=== PATIENT | male | born 1945 | race Caucasian/White ===

== ENCOUNTER 2017-03-02 08:36 | Observation (INO) | payer MEDICARE ==
[2017-03-02] MEDS ORDERED: Aspirin Low Dose CHEW TAB* 81 MG PO ONE (08:45)
--- NOTE | 2017-03-02 09:28 | RAD ---
INDICATION: Palpitations COMPARISON: September 07, 2012 TECHNIQUE: An AP portable view obtained at 0856 hours is submitted. FINDINGS: Bones/Soft Tissues: There are no acute bony findings. There is left-sided cardiac pacemaker/defibrillator Cardiomediastinal: The cardiomediastinal silhouette is mildly prominent. Lungs: There are no infiltrates. Pleura: There are no pleural effusions. Other: None IMPRESSION: MILDLY PROMINENT CARDIAC SILHOUETTE. NO VASCULAR CONGESTION OR FOCAL INFILTRATES
[2017-03-02 09:42] LABS: Hematocrit 41 % (42-52); Hemoglobin 14.3 g/dl (14.0-18.0); Mean Corpuscular HGB Conc 35 g/dl (31-36); Mean Corpuscular Hemoglobin 31 pg (27-31); Mean Corpuscular Volume 88 fL (80-94); Mean Platelet Volume 9 um3 (7.4-10.4); Red Cell Distribution Width 13 % (10.5-15); White Blood Count 7.3 10^3/ul (3.5-10.8)
[2017-03-02 09:57] LABS: Albumin 3.8 g/dL (3.2-5.2); BUN/Creatinine Ratio 14.2 (8-20); Calcium 9.2 mg/dL (8.6-10.3); EGFR African American 77.2 (>60); Globulin 3.5 g/dL (2-4); Potassium 3.4 mmol/L (3.5-5.0); Total Bilirubin 0.8 mg/dL (0.2-1.0); Total Protein 7.3 g/dL (6.4-8.9)
[2017-03-02 10:01] LABS: Troponin I 0.04 ng/mL (<0.04)
[2017-03-02 10:54] LABS: Urine Bacteria Absent (Absent); Urine Bilirubin Negative (Negative); Urine Glucose 3+(>=500 mg/dL) (Negative); Urine Nitrite Negative (Negative)
[2017-03-02] MEDS ORDERED: Ondansetron INJ* 2 MG/ML VIAL IV PRN (11:18)
[2017-03-02] MEDS ORDERED: Dextrose 50% Syringe 50 ML* 25 GM/50 ML SYRINGE IV PUSH PRN (11:18)
[2017-03-02] MEDS ORDERED: Acetaminophen TAB* 325 MG PO PRN (11:18)
[2017-03-02] MEDS ORDERED: Potassium Chlor TAB* 20 MEQ TAB.ER PO ONE (11:23)
[2017-03-02] MEDS ORDERED: hydrALAZINE IV* 20 MG/ML VIAL ONE (11:33)
[2017-03-02 11:39] LABS: Magnesium 1.7 mg/dL (1.9-2.7)
[2017-03-02] MEDS: hydrALAZINE IV* 20 MG/ML VIAL IV SLOW PU PRN ×2 (11:40→13:36)
[2017-03-02] MEDS ORDERED: HYDROcodone/ACETAMIN 5-325 MG* 1 TAB PO PRN (11:42)
[2017-03-02] MEDS ORDERED: [UNRECOGNIZED DRUG - OTHER] PO PRN (11:42)
[2017-03-02] MEDS ORDERED: Magnesium Sulfate 2 GM IV* 2 GM/50 ML BAG IVPB ONE (11:46)
[2017-03-02] MEDS: Insulin LISPRO* 1 UNITS UNIT SUBCUT SCH ×2 (12:11→18:00)
[2017-03-02] MEDS: amLODIPine TAB* 5 MG PO SCH (13:36)
[2017-03-02 13:48] LABS: TSH (Thyroid Stimulating Horm) 1.31 mcIU/mL (0.34-5.60)
[2017-03-02] MEDS ORDERED: hydrALAZINE IV* 20 MG/ML VIAL IV SLOW PU ONE (14:00)
[2017-03-02] MEDS ORDERED: amLODIPine TAB* 5 MG PO ONE (14:00)
[2017-03-02] MEDS ORDERED: Perflutren Lipid Microsphere* 3 ML VIAL ONE (14:12)
[2017-03-02] MEDS: Morphine TAB Extended Release (*) 15 MG TAB.ER PO SCH ×2 (14:19→20:34)
--- NOTE | 2017-03-02 14:49 | HP ---
CC: Dr. Maciel; Dr. Cosby; Dr. Hansen * HISTORY AND PHYSICAL: DATE OF ADMISSION: 03/02/17 PRIMARY CARE PROVIDER: Dr. Cosby. ATTENDING PHYSICIAN WHILE IN THE HOSPITAL: Dr. Debra Laboy * report being dictated by Richy Sal NP). CHIEF COMPLAINT: 1. Dyspnea on exertion. 2. Not feeling well. 3. "My defibrillator went off." HISTORY OF PRESENTING ILLNESS: Mr. Aidan Shahid is a 71-year-old male patient; he carries a history of AFib, history of CHF, diabetes, hypertension, BPH, SARITA, spinal stenosis. He comes into the ER today stating that last evening just was not feeling good, he was feeling clammy, feeling really short of breath, sick with any exertion. He says even shifting in his bed he got short of breath. He says he was able to go to bed, he put his CPAP on, he was feeling fine. He laid down, felt better, and went to sleep. However, he woke up this morning he was getting dressed when he was feeling short of breath again. He did not have any chest pressure, did not have any chest pain, did not feel any palpitations and all of a sudden his AICD went off and his was worried and called 911 immediately. He denies any recent change in medications. He says he has been taking his meds as prescribed, he has not missed any. Says he has not had any chest pain. Denied having any fevers or chills. There has been no vomiting or diarrhea. He just says he has not been really feeling all that well. He came into the ER and was evaluated. His troponin was mildly elevated. His electrolytes were off. His potassium was low. Because of the AICD firing, the hospitalist service was asked to evaluate for admission. PAST MEDICAL HISTORY: 1. Diabetes. 2. Hypertension. 3. AFib. 4. CAD. 5. CHF. 6. BPH. 7. SARITA. 8. Spinal stenosis. PAST SURGICAL HISTORY: 1. He has had an AICD placement. 2. He has had a cardiac catheterization. 3. He has had tonsillectomy. 4. Rectal surgery. HOME MEDICATIONS: Include, 1. Coreg 25 mg twice a day. 2. Gabapentin 300 mg p.o. b.i.d. 3. Warfarin he is on 8 mg daily. 4. Flomax 0.4 mg daily. 5. Humalog 15 units per sliding scale. 6. Levemir he is on 20 units daily. 7. Lisinopril he is on 20 mg daily. 8. Hydrocodone/acetaminophen 10/325 one tablet every 4 hours as needed. 9. MiraLAX mixing 1-1/2 to 2 capsules in 8 ounces of water daily. 10. He is on morphine ER 15 mg t.i.d. 11. Triamcinolone cream applied to area 3 times a day to rash on leg. 12. Vitamin D3 one tablet every day. 13. Synthroid 50 mcg daily. 14. Furosemide 20 mg daily. 15. Metformin 1500 mg twice a day. 16. Nortriptyline 100 mg at bedtime. 17. Lipitor 1 tablet by mouth daily. 18. Melatonin 1 capsule at bedtime as needed for sleep. ALLERGIES TO MEDICATIONS: Include no known drug allergies. FAMILY HISTORY: His mother had a history of breast cancer. His father had a history of lung cancer. SOCIAL HISTORY: He is a former smoker, he quit. He does not drink alcohol, if he does it is very rarely. He is , with children. His surrogate decision maker is his . REVIEW OF SYSTEMS: There is no documented fever. He denied having any significant weight change. There was no double vision. He denied having any ear discharge. There was no rhinorrhea. No sore throat. No thyroid enlargement. Denied chest pain. There was dyspnea on exertion. No orthopnea. No nocturnal dyspnea. There was no abdominal pain. No nausea. No vomiting. No dysuria. No frequency. No loss of consciousness. No pruritus. Review of 14 systems completed, all others were negative. PHYSICAL EXAMINATION GENERAL: At this time, Mr. Shahid is a 71-year-old male patient; he is morbidly obese. He is sitting in the ER stretcher. He does not appear to be in any acute distress. VITAL SIGNS: Blood pressure 197/102, pulse of 91, respirations 16, O2 sat 95%, temperature 97.4. HEENT: Head is atraumatic, normocephalic. Eyes: EOMs are intact. Sclerae were anicteric and not pale. Throat: Oral mucosa appears to be moist. No oropharyngeal erythema. NECK: Supple. LUNGS: Clear to auscultation. No wheezes, rales, or rhonchi. HEART: Sounds S1, S2. Regular rate and rhythm. No murmurs, rubs, or gallops. ABDOMEN: Soft, flat, nontender. Bowel sounds were present. EXTREMITIES: Pulses were 2+ throughout. Able to move all 4 extremities. He does have +2 pitting edema in the pedal area and 5/5 strength. NEUROLOGICAL: He is awake, he is alert, he is oriented x3. His tongue is midline. Materials Coordinator were equal. No gross focal deficits. SKIN: Intact. LABORATORY DATA/DIAGNOSTIC STUDIES: Today revealed a WBC of 7.3, RBC of 4.70, hemoglobin of 14.3, hematocrit of 41, and a platelet count of 231. INR 1.80, PTT was 35.2. D-dimer less than 200. Sodium 133, potassium 3.4, chloride of 100, bicarb 24, BUN 17, creatinine 1.20, glucose of 283, lactate 3.3, calcium 9.2, mag pending. Total bili 0.8, AST 17, ALT 18, alk phos 77. Troponin 0.04. Albumin of 3.8. TSH pending. Urine showed a low specific gravity, 2+ protein , 1+ blood, 3+ urine glucose. He did have an EKG obtained today, which unfortunately I do not have a previous for comparison here, but the EKG today showed a sinus tachycardia. He did have some ST depression in V4, 5, and 6 and leads I, II, and III appears to be actually diffuse depression. He does have an intraventricular conduction delay. Again, no previous EKG for comparison. He also had a chest x-ray obtained today, which impression read mildly prominent cardiac silhouette, no vascular congestion, no focal infiltrates. Old medical records were reviewed. ASSESSMENT AND PLAN: Mr. Shahid is a 71-year-old male patient coming into the ER today with complaints of just not feeling well over the last 24 to 36 hours and then this morning his AICD fired. He was brought into the hospital, evaluated, and noted that he had an elevated troponin. His lactate was up and in addition to this his calcium was 3.4. Hospitalist service was asked to evaluate for admission. He will be admitted under observation status for: 1. AICD firing. At this point, we know his potassium is low so we are going to replace this. We will get his mag, get his TSH. We will cycle his troponins. We will get an echo, he has not had one recently. I am going to try to get the records from Dr. Maciel's office if possible. Unfortunately, my is not working and I cannot login to this. I did touch base with Dr. Hansen who will evaluate the patient. We will stabilize his electrolytes, get the interrogation done and we will continue his medications as prescribed. 2. Hypertension. It is not well controlled. At this point, his blood pressure is in the 200s here. I am going to give him some hydralazine. We will continue his medications. He said he took them this morning. I will consider adding on some Norvasc at bedtime to see this helps keep the blood pressure down. I would like to get it to the 140s to 150 range. 3. Diabetes. We will place him on a lispro sliding scale. He is also on Levemir but we will convert this to Lantus. 4. Atrial fibrillation. Again, he appears to be in a sinus tachycardia at this point. We will again continue his rate controlling agents and Coumadin. His INR is subtherapeutic at 1,8. We will continue 8 mg and repeat in the morning. 5. Coronary artery disease. He is on a beta-cesar and statin. We will continue these medications. 6. Congestive heart failure. He does not appear to be in failure. We will continue his Lasix as prescribed. 7. Benign prostatic hyperplasia. Continue his Flomax. 8. Obstructive sleep apnea. I did order the CPAP. 9. Spinal stenosis. We will continue his pain medications as prescribed. 10. DVT prophylaxis. He is on warfarin. INR is 1.8. We will continue with this and I will order SCDs. 11. Code status. He wishes to be a do not resuscitate. We will try to track down his MOLST; if he does not have one, we will fill one out. 12. Fluids, electrolytes, and nutrition. He can have a consistent carbohydrate diet. TIME SPENT: On the admission was approximately 60 minutes, greater than half the time spent [id number] with the patient obtaining my history and physical; other half time spent going over the plan of care with the patient and implementing the plan of care. I discussed the plan of care with my attending, Dr. Laboy, who is in agreement. RICHY SAL NP [id number]/[facility] #: [id number] CARIDAD
[2017-03-02] MEDS ORDERED: Labetalol IV* 5 MG/ML 20 ML VIAL IV PUSH ONE ×2 (14:54→18:15)
--- NOTE | 2017-03-02 16:22 | ECHO ---
Patient: MONY ULLOA [facility] Rec#: [id number] : 1945 Date: 03/02/2017 Age: 71y Height: 187.96 cm / 74.0 in Weight: 146.06 kg / 321.9 lbs Sex: M BSA: 2.66 Room#: 443 Admit Date#: 03/02/2017 Type: Inpatient Referring: Richy Sal NP Reading: Ramonita Hansen MD Continuity Tester: Lidia Madsen LIZZ CC: Jorge Cosby MD Transthoracic Echocardiogram Indication: CAD//s/p defib firing BP: 197/102 HR: 73 Rhythm: Paced Findings History: CAD,[place],s/p AICD insert,DM,smoker,asthma,HTN. Technical Comments: The study is technically limited due to patient body habitus. Completed at 1459. The study is technically limited due to the patient's smoking history. Left Ventricle: The left ventricular chamber size is mildly dilated. Moderate concentric left ventricular hypertrophy is observed. There is normal left ventricular systolic function. The estimated ejection fraction is 55-60%. Abnormal left ventricular diastolic function is observed. Left Atrium: The left atrial chamber size is normal. Right Ventricle: The right ventricular cavity size is normal. The right ventricular global systolic function is normal. A pacemaker wire is visualized in the right ventricle. Right Atrium: The right atrial cavity size is normal. A pacemaker wire is visualized in the right atrium. Aortic Valve: The aortic valve is trileaflet. The aortic valve leaflets are mildly thickened. There is no evidence of aortic regurgitation. There is no evidence of aortic stenosis. The highest aortic valve velocity was obtained with the standard probe from the A5C view. Mitral Valve: The mitral valve leaflets are mildly thickened. There is a trace of mitral regurgitation. There is no evidence of mitral stenosis. Tricuspid Valve: The tricuspid valve leaflets are normal. There is trace tricuspid regurgitation. Unable to estimate the right ventricular systolic pressure. Pulmonic Valve: The pulmonic valve structure is not well visualized. Pericardium: The pericardium appears normal. Aorta: The ascending aorta is not well visualized. There is no dilatation of the aortic arch. There is no dilation of the aortic root. Pulmonary Artery: The main pulmonary artery appears normal. Venous: The venous system is not well visualized. Contrast: Definity was used to optimize study. A total of 4ml was given. Intravenous contrast was used to enhance endocardial border definition. Conclusions Moderate concentric left ventricular hypertrophy is observed. There is normal left ventricular systolic function. The estimated ejection fraction is 55-60%. Abnormal left ventricular diastolic function is observed. The right ventricular global systolic function is normal. P pacemaker wire noted in RV. The aortic valve leaflets are sclerosed, no significant stenosis. There is a trace of mitral regurgitation. There is trace tricuspid regurgitation. Compared with prior echo of 03/21/15, EF is stable, valve function not significantly changed. Unable to compare PA pressure, previously elevated. Measurements Name Value Normal Range RVIDd (AP) 2D 3 cm (0.9 - 2.6) RVDdMajor (2D) 3 cm (2.2 - 4.4) RAd ISD 4CH 4.4 cm (3.4 - 4.9) RA (A4C)W 3.6 cm (2.9 - 4.6) IVSd (2D) 1.2 cm (0.6 - 1) LVPWd (2D) 1.6 cm (0.6 - 1) LVIDd (2D) 5.7 cm (3.6 - 5.4) LVIDs (2D) 3.8 cm - LV FS (2D) 33 % (25 - 45) Aortic Annulus 2.3 cm (1.4 - 2.6) Ao root diameter (2D) 3.8 cm (2.1 - 3.5) Aortic arch 3.3 cm (1.8 - 3.4) Descending Ao 0.6 cm - LA dimension (AP) 2D 3.8 cm (2.3 - 3.8) LAd ISD 4CH 4.9 cm (2.9 - 5.3) LA ISD 4CH W 3.2 cm (2.5 - 4.5) Name Value Normal Range LA ESV SP 4CH (A/L) 51 ml - LA ESV SP 2CH (A/L) 46 ml - LA ESV BP (A/L) 50 ml - LA ESV BP (A/L) index 18.67 ml/m2 - LA ESV SP 4CH (MOD) 49 ml - LA ESV SP 2CH (MOD) 45 ml - Name Value Normal Range MV E-wave Vmax 0.7 m/sec - MV deceleration time 235 msec - MV A-wave Vmax 0.8 m/sec - MV E:A ratio 0.89 ratio - LV septal e' Vmax 0.07 m/sec - LV lateral e' Vmax 0.05 m/sec - LV E:e' septal ratio 10 ratio - LV E:e' lateral ratio 14 ratio - Name Value Normal Range AV Vmax 2.7 m/sec - AV VTI 54.8 cm - AV peak gradient 29.61 mmHg - AV mean gradient 16.78 mmHg - LVOT diameter 2.1 cm - LVOT Vmax 0.9 m/sec - LVOT VTI 17.9 cm - LVOT peak gradient 3 mmHg - LVOT mean gradient 1.51 mmHg - TARAH (continuity Vmax) 1.2 cm2 - TARAH (continuity VTI) 1.1 cm2 - Name Value Normal Range PV Vmax 1.2 m/sec - PV peak gradient 5.64 mmHg -
[2017-03-02] MEDS ORDERED: CMCS Melatonin (NF) 3 MG TAB PO PRN (17:08)
[2017-03-02] MEDS ORDERED: Warfarin TAB(*) 4 MG PO SCH (18:00)
[2017-03-02] MEDS: Potassium Chlor TAB* 20 MEQ TAB.ER PO SCH (20:35)
[2017-03-02] MEDS: Tamsulosin CAP* 0.4 MG PO SCH (20:35)
[2017-03-02] MEDS: Gabapentin CAP(*) 300 MG PO SCH (20:35)
[2017-03-02] MEDS ORDERED: Nortriptyline CAP* 25 MG PO SCH (21:00)
[2017-03-02] MEDS ORDERED: Carvedilol TAB* 25 MG PO SCH (21:00)
[2017-03-02] MEDS ORDERED: Insulin GLARGINE(*) 1 UNITS UNIT SUBCUT SCH (21:00)
[2017-03-02] MEDS ORDERED: Carvedilol TAB* 25 MG PO ONE (21:49)
--- NOTE | 2017-03-02 22:06 | PN ---
Hospitalist Progress Note Discussed case with cannon fire direction specialist cardiology. Plan is to increase coreg to 50mg bid and start amio 400mg bid times 5 days than 200mg daily. Will need close f/u with INR due to amio.
[2017-03-03] MEDS ORDERED: Melatonin (NF) 3 MG TAB PO ONE (01:00)
[2017-03-03] MEDS: Amiodarone TAB* 400 MG PO SCH ×2 (01:01→09:25)
[2017-03-03 05:23] LABS: Hematocrit 37 % (42-52); Hemoglobin 12.8 g/dl (14.0-18.0); Mean Corpuscular HGB Conc 34 g/dl (31-36); Mean Corpuscular Hemoglobin 30 pg (27-31); Mean Corpuscular Volume 88 fL (80-94); Mean Platelet Volume 8 um3 (7.4-10.4); Red Blood Count 4.24 10^6/ul (4.0-5.4); Red Cell Distribution Width 13 % (10.5-15); White Blood Count 6.3 10^3/ul (3.5-10.8)
[2017-03-03 05:37] LABS: BUN/Creatinine Ratio 15.2 (8-20); Calcium 8.5 mg/dL (8.6-10.3); EGFR African American 73.7 (>60); EGFR Non-African American 57.3 (>60); Potassium 3.7 mmol/L (3.5-5.0)
[2017-03-03] MEDS ORDERED: Levothyroxine TAB* 50 MCG TAB PO SCH (06:00)
--- NOTE | 2017-03-03 07:04 | CARD ---
CC: Dr. Tian Maciel * DEFIBRILLATOR INTERROGATION REPORT: DATE OF INTERROGATION: 03/02/17 - ROOM #443 INDICATION: Defibrillator shock. DESCRIPTION OF INTERROGATION: The patient has a [employer] ICD model Current VR RF 1207-36, serial number [id number]. We had a remote interrogation done today and this current confirmed the patient has a single-chamber defibrillator programmed for a lower pacing rate of 40 beats a minute. The patient's tachy programming is to monitor only in VT1 and VT2. VT1 zone is programmed to detect and monitor at 150 beats to 175 beats a minute. VT2 programmed to detect entry dysrhythmias of 176 beats a minute or greater with ATP and defibrillator shock and the VF zone is 206 beats a minute or greater with shock. The patient has supraventricular tachycardia detected at 3:52 this morning and this persisted until 4:40 in the morning, at which time the device was programmed to time-out and therefore delivered a shock to the supraventricular tachycardia. The intracardiac electrograms are consistent with AFib with irregularly irregular rates between 150 and 170 beats a minute. CONCLUSION: Atrial fibrillation from 3:52 in the morning to 4:40 in the morning at which time the SVT discriminator timed out and therapy was delivered in the form of ATP 3 times, unsuccessful followed by a 36-joule shock which successfully cardioverted the patient to normal sinus rhythm. PLAN: Turn time-out feature of SVT/afib with discriminator to off. [id number]/[facility] #: [id number] CARIDAD
[2017-03-03 08:00] VITALS: BP 153/79
[2017-03-03] MEDS: Insulin LISPRO* 1 UNITS UNIT SUBCUT SCH ×2 (08:25→12:21)
[2017-03-03] MEDS ORDERED: Carvedilol TAB* 25 MG PO SCH (09:00)
[2017-03-03] MEDS ORDERED: Furosemide TAB* 20 MG PO SCH (09:00)
[2017-03-03] MEDS ORDERED: Lisinopril TAB* 10 MG PO SCH (09:00)
[2017-03-03] MEDS ORDERED: Atorvastatin* 40 MG TAB PO SCH (09:00)
[2017-03-03] MEDS: amLODIPine TAB* 5 MG PO SCH (09:26)
[2017-03-03] MEDS: Gabapentin CAP(*) 300 MG PO SCH (09:26)
[2017-03-03] MEDS: Morphine TAB Extended Release (*) 15 MG TAB.ER PO SCH (09:27)
[2017-03-03] MEDS: Potassium Chlor TAB* 20 MEQ TAB.ER PO SCH (09:27)
[2017-03-03] MEDS: Tamsulosin CAP* 0.4 MG PO SCH (09:28)
--- NOTE | 2017-03-03 10:16 | PN ---
Subjective Date of Service: 03/03/17 Interval History: Mr. Shahid states that he is feeling quite well today. He denies any further sensation of clamminess or SOB. He further denies chest pain, nausea, or abdominal pain. He has been up ambulating on the unit without difficulty. Objective Active Medications: Acetaminophen (Tylenol Tab*) 650 mg PO Q4H PRN Hydrocodone Bitart/Acetaminophen ([place] 5-325 Tab*) 2 tab PO Q4HR PRN Amiodarone HCl (Cordarone Tab*) 400 mg PO BID FABIOLA Amlodipine Besylate (Norvasc Tab*) 5 mg PO DAILY FABIOLA Atorvastatin Calcium (Lipitor*) 40 mg PO DAILY FABIOLA Carvedilol (Coreg Tab*) 50 mg PO BID FABIOLA Dextrose (D50w Syringe 50 Ml*) 12.5 gm IV PUSH .FOR FS < 60 - SS PRN Furosemide (Lasix Tab*) 20 mg PO DAILY [facility] Gabapentin (Neurontin Cap(*)) 300 mg PO BID FABIOLA Hydralazine HCl (Apresoline Iv*) 5 mg IV SLOW PU Q6H PRN Insulin Glargine (Lantus(*)) 20 units SUBCUT Q24H FABIOLA Insulin Human Lispro (Humalog*) 0 units SUBCUT AC FABIOLA Levothyroxine Sodium (Synthroid Tab*) 50 mcg PO 0600 FABIOLA Lisinopril (Prinivil Tab*) 20 mg PO DAILY [facility] Melatonin (Melatonin (Nf)) 3 mg PO BEDTIME PRN Morphine Sulfate (Ms Contin(*)) 15 mg PO TID FABIOLA Nortriptyline HCl (Pamelor Cap*) 100 mg PO BEDTIME FABIOLA Ondansetron HCl (Zofran Inj*) 4 mg IV Q6H PRN Potassium Chloride (Klor Con Er Tab*) 20 meq PO BID FABIOLA Tamsulosin HCl (Flomax Cap*) 0.4 mg PO BID FABIOLA Warfarin Sodium (Coumadin Tab(*)) 8 mg PO QPM [facility] Vital Signs 03/02/17 03/02/17 03/02/17 11:29 11:30 11:32 Temperature Pulse Rate 81 Respiratory 31 Rate Blood Pressure 199/148 (mmHg) O2 Sat by Pulse 96 Oximetry 03/02/17 03/02/17 03/02/17 12:00 12:30 13:00 Temperature Pulse Rate 79 77 Respiratory 18 13 16 Rate Blood Pressure 176/88 196/93 (mmHg) O2 Sat by Pulse 97 97 Oximetry 03/02/17 03/02/17 03/02/17 13:18 14:19 14:45 Temperature 98.3 F Pulse Rate 81 77 Respiratory 16 16 Rate Blood Pressure 218/120 191/86 (mmHg) O2 Sat by Pulse 97 Oximetry 03/02/17 03/02/17 03/02/17 15:47 16:42 18:17 Temperature 98.0 F Pulse Rate 72 82 Respiratory 16 Rate Blood Pressure 208/99 184/90 188/93 (mmHg) O2 Sat by Pulse 98 Oximetry 03/02/17 03/02/17 03/02/17 19:44 20:34 20:35 Temperature 97.5 F Pulse Rate 82 Respiratory 18 18 18 Rate Blood Pressure 182/94 (mmHg) O2 Sat by Pulse 98 Oximetry 03/02/17 03/02/17 03/03/17 22:34 22:35 00:04 Temperature 97.9 F Pulse Rate 67 Respiratory 18 18 16 Rate Blood Pressure 173/80 (mmHg) O2 Sat by Pulse 98 Oximetry 03/03/17 03/03/17 03/03/17 04:08 04:52 07:31 Temperature 97.8 F 98.4 F Pulse Rate 66 69 Respiratory 16 16 Rate Blood Pressure 166/79 153/79 (mmHg) O2 Sat by Pulse 97 97 97 Oximetry 03/03/17 03/03/17 09:26 09:27 Temperature Pulse Rate Respiratory 20 18 Rate Blood Pressure (mmHg) O2 Sat by Pulse Oximetry Oxygen Devices in Use Now: None Appearance: Male lying in bed in NAD Eyes: No Scleral Icterus Ears/Nose/Mouth/Throat: Mucous Membranes Moist Neck: Trachea Midline Respiratory: Symmetrical Chest Expansion and Respiratory Effort, Clear to Auscultation Cardiovascular: NL Sounds; No Murmurs; No JVD, No Edema Abdominal: NL Sounds; No Tenderness; No Distention Lymphatic: No Cervical Adenopathy Extremities: No Edema Skin: No Rash or Ulcers Neurological: Alert and Oriented x 3, NL Muscle Strength and Tone Nutrition: Taking PO's Result Diagrams: 03/03/17 05:03 03/03/17 05:03 Additional Lab and Data: Lab Results 03/02/17 03/02/17 03/02/17 Range/Units 09:27 09:27 09:27 WBC 7.3 (3.5-10.8) 10^3/ul RBC 4.70 (4.0-5.4) 10^6/ul Hgb 14.3 (14.0-18.0) g/dl Hct 41 L (42-52) % MCV 88 (80-94) fL MCH 31 (27-31) pg MCHC 35 (31-36) g/dl RDW 13 (10.5-15) % Plt Count 231 (150-450) 10^3/ul MPV 9 (7.4-10.4) um3 Neut % (Auto) 73.1 (38-83) % Lymph % (Auto) 17.7 L (25-47) % Ware % (Auto) 6.6 (1-9) % Eos % (Auto) 1.6 (0-6) % Baso % (Auto) 1.0 (0-2) % Absolute Neuts (auto) 5.4 (1.5-7.7) 10^3/ul Absolute Lymphs (auto) 1.3 (1.0-4.8) 10^3/ul Absolute Monos (auto) 0.5 (0-0.8) 10^3/ul Absolute Eos (auto) 0.1 (0-0.6) 10^3/ul Absolute Basos (auto) 0.1 (0-0.2) 10^3/ul Absolute Nucleated RBC 0.01 10^3/ul Nucleated RBC % 0.1 Sodium 133 (133-145) mmol/L Potassium 3.4 L (3.5-5.0) mmol/L Chloride 100 L (101-111) mmol/L Carbon Dioxide 24 (22-32) mmol/L Anion Gap 9 (2-11) mmol/L BUN 17 (6-24) mg/dL Creatinine 1.20 H (0.67-1.17) mg/dL Est GFR ( Amer) 77.2 (>60) Est GFR (Non-Af Amer) 60.0 (>60) BUN/Creatinine Ratio 14.2 (8-20) Glucose 283 H (70-100) mg/dL Lactic Acid 3.3 H* (0.5-2.0) mmol/L Calcium 9.2 (8.6-10.3) mg/dL Total Bilirubin 0.80 (0.2-1.0) mg/dL AST 17 (13-39) U/L ALT 18 (7-52) U/L Alkaline Phosphatase 77 (34-104) U/L Troponin I Pending Total Protein 7.3 (6.4-8.9) g/dL Albumin 3.8 (3.2-5.2) g/dL Globulin 3.5 (2-4) g/dL Albumin/Globulin Ratio 1.1 (1-3) Microbiology and Other Data: Microbiology 03/02/17 12:48 Nasal Screen MRSA (PCR)(PASTOR) - Final Nasal Mrsa Negative Assess/Plan/Problems-Billing Assessment: Mr. Shahid is a 71 yo male with a PMH of afib, DM who was admitted on 03/02/17 after his ICD fired. - Patient Problems (1) Afib Comment: - Patient asymptomatic and feeling well. - ICD interrogation shows afib with HR 150-170. - Appreciate input from cardiology. Plan to resume amiodarone at 400mg po BID x 5 days and then 200mg po daily. Also plan to increase carvedilol to 50mg po BID. - Plan to continue low dose daily supplementation with K and Mag. Patient instructed to have labs checked at follow up appt with Dr. Maciel. - Plan to continue warfarin. Patient to have INR checked on Tuesday, today it is 1.54. (2) Diabetes Comment: - BGs well controlled. - Resume home regimen of levemir, lispro and metformin. (3) Hyperlipidemia Comment: - Continue atorvastatin. (4) Hypertension Comment: - SBP 150-170s. - Continue furosemide and lisinopril. Carvedilol has been increased and amlodipine has been added. - Recommend close follow up with Dr. Maciel for further adjustment of meds as indicated. (5) Chronic pain Comment: - Continue gabapentin, morphine and hydrocodone. (6) Hypothyroidism Comment: - Continue levothyroxine. (7) DNR (do not resuscitate) (8) DVT prophylaxis Status and Disposition: OBV. Discharge to home.
--- NOTE | 2017-03-03 12:48 | DS ---
DATE OF ADMISSION: 03/02/2017. DATE OF DISCHARGE: 03/03/2017. ATTENDING PHYSICIAN: Dr. Farnaz Mackey * (dictation provided by Dania Lynch NP ). PRIMARY DIAGNOSIS: Rapid atrial fibrillation with ICD firing. SECONDARY DIAGNOSES: 1. Type 2 diabetes, insulin dependent. 2. Hypertension. 3. A-fib. 4. Coronary artery disease. 5. Diastolic CHF. 6. Chronic CHF. 7. Benign prostatic hypertrophy. 8. Obstructive sleep apnea with home CPAP. 9. Spinal stenosis. 10. Bladder cancer. PAST SURGICAL HISTORY: 1. ICD placement. 2. Cardiac catheterization. 3. History of tonsillectomy. 4. History of rectal surgery. MEDICATIONS: New medications: 1. Amiodarone 400 mg p.o. b.i.d. times 5 times followed by Amiodarone 200 mg daily. 2. Coreg 50 mg twice daily. 3. Amlodipine 5 mg p.o. daily. 4. Potassium Chloride 20 mEq p.o. daily. 5. Magnesium Oxide 400 mg p.o. daily. The remainder of his medications are as follows: 1. Gabapentin 300 mg p.o. b.i.d. 2. Warfarin 8 mg p.o. daily. 3. Flomax 0.4 mg daily. 4. Humalog per sliding scale with meals. 5. Levemir 20 units daily. 6. Lisinopril 20 mg daily. 7. Hydrocodone with acetaminophen 10/325 one tab q.4 hours prn. 8. MiraLax daily. 9. Morphine ER 15 mg t.i.d. 10. Triamcinolone cream three times a day to rash on leg. 11. Vitamin D3 daily. 12. Synthroid 50 mcg p.o. daily. 13. Furosemide 20 mg p.o. daily. 14. Metformin 1000 mg in the a.m. and 1500 mg in the p.m. 15. Nortriptyline 100 mg at bedtime. 16. Lipitor one tab daily. 17. Melatonin one capsule as needed for sleep. HOSPITAL COURSE: Mr. Shahid is a 71-year-old male with a past medical history of diabetes, hypertension, atrial fibrillation with ICD, coronary artery disease , and chronic diastolic congestive heart failure who presented to the hospital on 03/02/2017 with concern for his defibrillator going off. Please see the dictated history and physical from nurse practitioner Richy Sal for complete details. In brief, the patient had been feeling clammy and SOB since the prior evening He slept well through the night, but on awakening in the morning, he had firing of his defibrillator. The patient presented to the emergency room. His EKG showed sinus tachycardia with a heart rate of 100 with no evidence of ischemia. He had labs which showed hypokalemia and hypomagnesemia with potassium of 3.4 and magnesium of 1.7. Mr. Shahid was admitted to the hospital. He had ICD interrogation by Dr. Hansen which notes that the patient had a period of rapid atrial fibrillation with a heart rate of 150 to [address] judge hours after which a shock was fired from the ICD. Recommendations were to replete potassium and magnesium which had been done, to load with Amiodarone at 400 mg p.o. b.i.d. times five days and then to continue on it 200 mg p.o. daily. The patient had been on Amiodarone in the past, but this had been discontinued during the course of treatment for his bladder cancer. Also, recommendations were to increase his Carvedilol from 25 to 50 mg p.o. b.i.d. In addition to this, the patient's blood pressure was quite elevated during the hospitalization running 180s to 200s in the initial part of his hospitalization. His Coreg has been increased as stated. We have also added Amlodipine 5 mg p.o. daily to his regimen. With this, his blood pressure today was 153/79. His heart rate is running in the high 60s. Mr. Shahid has been ambulating on the unit with absolutely no complaints. He has had no chest pain, no shortness of breath. For completeness' sake, we did complete a transthoracic echocardiogram which showed that there was no stable EF and no change from prior echocardiogram from 03/21/2015. His EF is noted to be 55 to 60 percent. Mr. Shahid is medically stable for discharge to home today. Our plan is for him to have his INR checked on Tuesday. His INR is low at 1.57, but I plan to continue the 8 mg dosage as he will be on Amiodarone which is predicted to increase his INR. I have also added potassium and magnesium supplementation and have asked that his electrolytes be checked at his follow-up appointment with Dr. Maciel. DISPOSITION: To home. DIET: Low fat, low salt, consistent carbohydrate. ACTIVITY: As tolerated. FOLLOW-UP PLANS: 1. Please follow-up with Dr. Maciel in two to three weeks. At that time, please have electrolytes checked. 2. Please follow-up with Dr. Cosby at his office on Tuesday for check of INR. Approximately 60 minutes were spent in the discharge of this patient, more than half that time was spent with the patient at the bedside reviewing the events leading up to this hospitalization, performing the physical examination, and reviewing the plan of care. DANIA LYNCH NP [id number]/CPS #: [id number] CARIDAD
[2017-03-04] MEDS ORDERED: Magnesium Oxide TAB* 400 MG PO SCH (09:00)
== END 2017-03-03 14:05 | disposition home or self-care (01) ==
LOC: ED 08:36 → MEDTELE 11:14
PROVIDERS: ADMIT Hospitalist; ATTEND Internal Medicine
DX: I48.91 Unspecified atrial fibrillation (principal); Z79.01 Long term (current) use of anticoagulants; Z95.810 Presence of automatic (implantable) cardiac defibrillator; E11.9 Type 2 diabetes mellitus without complications; Z79.4 Long term (current) use of insulin; I11.0 Hypertensive heart disease with heart failure; I50.32 Chronic diastolic (congestive) heart failure; N40.0 Benign prostatic hyperplasia without lower urinary tract symptoms; G47.33 Obstructive sleep apnea (adult) (pediatric); I25.10 Atherosclerotic heart disease of native coronary artery without angina pectoris; Z85.51 Personal history of malignant neoplasm of bladder; Z79.899 Other long term (current) drug therapy; Z87.891 Personal history of nicotine dependence; G89.29 Other chronic pain; E03.9 Hypothyroidism, unspecified; I51.7 Cardiomegaly
CPT/HCPCS: 36415; 71010; 80048; 80053; 81003; 81015; 83605; 83735; 84443; 84484; 85025; 85379; 85610; 85730; 87641; 93005; 93306; 96365; 96366; 96375; 96376; 99284; A9270-GY; C8929; G0378; J0360; J3475

== ENCOUNTER 2017-08-09 06:07 | Day surgery (SDC) | payer MEDICARE ==
[~2017-08-09 06:07] MED LIST: Buffered Lidocaine 0.9% SYRIN* 5 ML/SYR SYRINGE INTRADERM ONE; Dexamethasone IV* 4 MG/ML 1 ML (4 MG) IV SLOW PU ONE; Famotidine IV* 10 MG/ML 2 ML (20 mg) IV ONE; Sodium Citrate/Citric Acid* 15 ML UDC PO ONE
[2017-08-09] MEDS ORDERED: ceFAZolin 2 GM PREMIX (*) 2 GM/50 ML BAG IVPB ONE (06:40)
[2017-08-09] MEDS ORDERED: Famotidine IV* 10 MG/ML 2 ML (20 mg) ONE (06:40)
[2017-08-09] MEDS ORDERED: Dexamethasone IV* 4 MG/ML 1 ML (4 MG) ONE (06:40)
[2017-08-09] MEDS ORDERED: Buffered Lidocaine 0.9% SYRIN* 5 ML/SYR SYRINGE ONE (06:41)
[2017-08-09] MEDS ORDERED: ceFAZolin 1 GM in Dextrose (*) 1 GM/50 ML BAG IVPB ONE (06:41)
[2017-08-09] MEDS ORDERED: Bupivacaine 0.25% SDV* 30 ML ONE (07:02)
[2017-08-09] MEDS ORDERED: Lidocaine 1% INJ* 10 MG/ML 30 ML SDV ONE (07:02)
[2017-08-09] MEDS ORDERED: Lidocaine 1% MPF wEPI 200,000* 30 ML SDV ONE (07:22)
[2017-08-09] MEDS ORDERED: Mineral Oil Sterile, TOPICAL* 25 ML BTL ONE (07:22)
[2017-08-09] MEDS ORDERED: fentaNYL* 50 MCG/ML 2 ML VIAL (100 MCG VIAL) ONE (07:37)
[2017-08-09] MEDS ORDERED: Midazolam* 1 MG/ML 10 ML VIAL (10 MG) ONE (07:37)
[2017-08-09] MEDS ORDERED: Propofol* 10 MG/ML 20 ML BTL IV PUSH ONE (07:41)
[2017-08-09] MEDS ORDERED: Ondansetron INJ* 2 MG/ML VIAL ONE (07:41)
[2017-08-09] MEDS ORDERED: Naloxone* 0.4 MG/ML 1 ML VIAL IV PRN (09:20)
[2017-08-09 09:32] VITALS: BP 166/68
== END 2017-08-09 10:06 | disposition home or self-care (01) ==
LOC: OR 06:07
PROVIDERS: ATTEND Plastic Surgery
DX: C44.41 Basal cell carcinoma of skin of scalp and neck (principal); E11.9 Type 2 diabetes mellitus without complications; Z79.4 Long term (current) use of insulin; E66.01 Morbid (severe) obesity due to excess calories; G47.33 Obstructive sleep apnea (adult) (pediatric); I50.9 Heart failure, unspecified; I25.10 Atherosclerotic heart disease of native coronary artery without angina pectoris; I10 Essential (primary) hypertension; I48.91 Unspecified atrial fibrillation; E03.9 Hypothyroidism, unspecified; E78.5 Hyperlipidemia, unspecified; I25.2 Old myocardial infarction; Z87.891 Personal history of nicotine dependence; Z95.810 Presence of automatic (implantable) cardiac defibrillator
CPT/HCPCS: 88305; 88331; 88332; A9270-GY; J0690; J1100; J2001; J2250; J2405; J2704; J3010

== ENCOUNTER 2018-04-01 12:10 | Emergency (ER) | payer MEDICARE ==
--- OUTSIDE RECORDS SUMMARY | 2018-04-01 12:25 | XMS REPORT ---
:1945 External Reference #:[id number] Author Organization [employer] Address [address] [place] [address] [place] [address] Phone [phone] Care Team Providers Name Role Phone Jorge Cosby DO Primary Care Physician Unavailable Payers Type Date Identification Numbers Payment Provider Subscriber Medicare Primary Policy Number: [id number] Medicare Aidan Shahid PayID: [id number] [address] [place] [address] [facility] Policy Number: [id number] [facility] Aidan Shahid PayID: [id number] [address] [place] [address] Problems Date Description Provider Status Onset: 03/11/2015 Congestive heart failure Tian Maciel DO [facility] Active Onset: 11/26/2015 Obstructive sleep apnea syndrome Faviola Eli MD Active Onset: 11/26/2015 Morbid obesity Faviola Eli MD Active Onset: 06/20/2017 Lumbosacral spondylosis without Shirley Cabrera MD Active myelopathy Onset: 06/20/2017 Obesity Shirley Cabrera MD Active Family History Date Family Member(s) Problem(s) Comments Father Hypertension Father due to Lung Cancer () - age 79 Mother Hypertension Mother Breast Cancer Mother Alive at age 95 (2016) Siblings 4 All healthy Social History Type Date Description Comments Marital Status Lives With 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 Patient moved back to area to be closer to family. 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 Cigarette Use Former Cigarette Smoker 2 for 24 years, quit 1984 Packs Daily ETOH Use Denies alcohol use Smoking Patient is a former smoker Recreational Drug Use Former Drug User Recreational Drug Use Formerly used Marijuana regularly Daily Caffeine Consumes on average 1 cup of regular coffee per day Exercise Type/Frequency 03/11/2015 Does not exercise d/t Spinal Stenosis, torn left rotator cuff, and arthritis in left knee Allergies, Adverse Reactions, Alerts Date Description Reaction Status Severity Comments 03/07/2015 NKDA active Medications Medication Date Status Form Strength Qnty SIG Indications Ordering Provider Coreg 03/18/ Active Tablets 25mg 120ta Take 2 Tian No 2016 bs tablets Maciel, twice DO FACC daily Lisinopril 11/24/ Active Tablets 20mg 1 by Unknown 2016 mouth every day Melatonin 11/24/ Active Tablets Sub 10mg take one Unknown 2015 1 hour before bed time. Lancets 11/24/ Active as Unknown 2015 directed Freestyle Lite 11/24/ Active use as Unknown Blood Glucose 2015 directed Monitoring System Freestyle Lite 11/24/ Active use as Unknown Test 2015 directed Senokot 11/24/ Active Tablets 8.6mg as needed Unknown 2015 Blood Pressure 11/24/ Active use as Unknown Machine 2015 directed Lisinopril-Hydr / Active Tablets 20-12.5mg 1 by Unknown ochlorothiazide 0000 mouth twice a day Vitamin D3 / Active Capsules 5000Unit 1 by Unknown 0000 mouth every day Levothyroxine / Active Tablets 50mcg 1 by Unknown Sodium 0000 mouth every day Nortriptyline / Active Capsules 50mg take 2 by Unknown HCL 0000 mouth every night at bedtime Furosemide / Active Tablets 20mg 90tab 1 by Tian No 0000 s mouth Maciel, every DO FACC morning Atorvastatin / Active Tablets 40mg 1 by Unknown Calcium 0000 mouth every day Metformin HCL / Active Tablets 1000mg 3 Am , 2 Unknown 0000 PM Warfarin Sodium / Active 5mg 8.5mg po [place], 0000 daily as Jorge directed Cristobal, DO Morphine / Active Tablets ER 15mg 1 tablet Unknown Sulfate ER 0000 po tid Hydrocodone-[place] / Active Tablets 10-325mg 2 tab by Unknown taminophen 0000 mouth every 6 hours as needed Triamcinolone / Active Cream 0.5% apply to Unknown Acetonide 0000 leg once daily as needed Miralax / Active Powder 3350NF 17 gm Unknown 0000 every day mixed w/ 8 oz water/jui ce Cpap / Active Device Unknown 0000 Tamsulosin HCL / Active Capsules 0.4mg 1 by Unknown 0000 mouth daily Potassium / Active Tablets ER 20Meq take 1 Unknown Chloride Kitty 0000 tablet by ER mouth daily Am Magnesium-Oxide / Active 400mg 1 tablet Unknown 0000 po bid Pacerone / Active Tablets 200mg take 1/2 Unknown 0000 tablet (100 mg) PO daily Levemir / Active Solution 100Unit/ML 20 units Unknown Flextouch 0000 Pen-Inject SQ daily Gabapentin / Active Capsules 300mg take 1 Unknown 0000 capsule by mouth 3xs a day Fluticasone / Active Suspension 50mcg/Act 2 sprays Unknown Propionate 0000 each nostril qd. Amlodipine 03/03/ Hx Tablets 5mg 1 by Joslyn Lynch 2016 - mouth Dania, 09/21/ every day Acn 2017 PM Ofloxacin 04/27/ Hx Solution 0.3% 15uni place 1 Tian No (Ophthalmic) 2015 - ts gtt both Maciel, 03/27/ eyes 4 DO [facility] 2017 times aday Coreg 04/13/ Hx Tablets 25mg 180ta 1 by Tian No 2016 - bs mouth Maciel, 03/18/ twice a DO [facility] 2016 day Novolog Penfill 02/18/ Hx Solution 100Unit/ML as Unknown 2015 - Cartridge directed ( Plans 2018 to replace Humalog in first of Apr 2017) Glipizide 11/24/ Hx Tablets 10mg as Unknown 2016 - directed 02/18/ before 2015 meals by mouth Coreg 11/24/ Hx Tablets 12.5mg 1 by Unknown 2016 - mouth 04/13/ twice a 2015 day Coreg 03/11/ Hx Tablets 25mg 180ta 1 by Tian No 2015 - bs mouth Maciel, 11/24/ twice a DO [facility] 2015 day Coreg / Hx Tablets 12.5mg 1 tab by Unknown 0000 - mouth 03/11/ twice a 2014 day Digoxin / Hx Tablets 250mcg 1/2 tab Unknown 0000 - by mouth 11/04/ 2015 other day Amiodarone HCL / Hx Tablets 200mg 1/2 by Unknown 0000 - mouth 09/08/ 2016 other day Ketorolac / Hx 1 gtt 4 Unknown Tromethamine 0000 - times a 2016 Prednisolone / Hx Suspension 1% 1 gtt 4 Unknown Acetate 0000 - times a 2016 eyes Medications Administered in Office Medication Date Status Form Strength Qnty SIG Indications Ordering Provider Inj, Administered Injection Umberto La Regadenoson, 015 Patterson, 0.1 MG M.D., FACC, FASNC Inj, Administered Injection Suyapa Aquino, Regadenoson, 015 PA 0.1 MG Technetium TC Administered Injection Umberto La 99M 015 Patterson, Tetrofosmin, M.D., FACC, Per Unit Dose FASNC Up To 40 Millicuries Technetium TC Administered Injection Tian S. 99M 015 Maciel, DO Tetrofosmin, FACC Per Unit Dose Up To 40 Millicuries Vital Signs Date Vital Result Comment 03/28/2018 Height 74 inches 6'2" Weight 325.00 lb Heart Rate 64 /min BP Systolic Sitting 100 mmHg lue lg cuff BP Diastolic Sitting 60 mmHg lue lg cuff BP Systolic Standing 120 mmHg BP Diastolic Standing 70 mmHg Respiratory Rate 18 /min BMI (Body Mass Index) 41.7 kg/m2 Ejection Fraction 55-60% 03/02/2017 echo 09/21/2017 Height 74 inches 6'2" Weight 331.00 lb Heart Rate 64 /min BP Systolic Sitting 104 mmHg Lue large cuff BP Diastolic Sitting 62 mmHg Lue large cuff BP Systolic Standing 102 mmHg Lue BP Diastolic Standing 66 mmHg Lue Respiratory Rate 18 /min BMI (Body Mass Index) 42.5 kg/m2 Ejection Fraction 55-60% 03/02/17 06/20/2017 Height 74 inches 6'2" Weight 320.00 lb Heart Rate 81 /min BP Systolic Sitting 138 mmHg BP Diastolic Sitting 72 mmHg Pain Level 4 BMI (Body Mass Index) 41.1 kg/m2 03/28/2017 Height 74 inches 6'2" Weight 330.00 lb with shoes Heart Rate 58 /min reg BP Systolic Sitting 128 mmHg Lue lg cuff BP Diastolic Sitting 60 mmHg Lue lg cuff BP Systolic Standing 130 mmHg Lue lg cuff BP Diastolic Standing 60 mmHg Lue lg cuff Respiratory Rate 16 /min BMI (Body Mass Index) 42.4 kg/m2 Ejection Fraction 55-60% date 03/02/17 ECHO 04/27/2016 Height 74 inches 6'2" Weight 326.50 lb with shoes Heart Rate 56 /min BP Systolic 164 mmHg LA lrg cuff after rest BP Diastolic 94 mmHg LA lrg cuff after rest BP Systolic Sitting 178 mmHg LA lrg cuff BP Diastolic Sitting 96 mmHg LA lrg cuff BP Systolic Standing 176 mmHg LA lrg cuff BP Diastolic Standing 92 mmHg LA lrg cuff Respiratory Rate 18 /min BMI (Body Mass Index) 41.9 kg/m2 Ejection Fraction 50-55% 03/21/2015 02/20/2016 Height 74 inches 6'2" Weight 312.00 lb Heart Rate 65 /min BP Systolic 134 mmHg BP Diastolic 78 mmHg Respiratory Rate 14 /min O2 % BldC Oximetry 95 % BMI (Body Mass Index) 40.1 kg/m2 11/26/2015 Height 74 inches 6'2" Weight 318.00 lb Heart Rate 61 /min BP Systolic Sitting 138 mmHg BP Diastolic Sitting 84 mmHg Respiratory Rate 20 /min O2 % BldC Oximetry 98 % BMI (Body Mass Index) 40.8 kg/m2 Neck Circumference in inches 23 11/05/2015 Height 74 inches 6'2" Weight 318.00 lb no shoes Heart Rate 62 /min BP Systolic Sitting 128 mmHg Ra lrg cuff BP Diastolic Sitting 84 mmHg Ra lrg cuff BP Systolic Standing 134 mmHg Ra lrg cuff BP Diastolic Standing 84 mmHg Ra lrg cuff Respiratory Rate 18 /min BMI (Body Mass Index) 40.8 kg/m2 Ejection Fraction 50-55% 03/21/15 04/16/2015 Height 74 inches 6'2" Weight 312.00 lb Heart Rate 60 /min BP Systolic Sitting 134 mmHg LA large cuff BP Diastolic Sitting 86 mmHg LA large cuff BP Systolic Standing 136 mmHg LA BP Diastolic Standing 82 mmHg LA Respiratory Rate 18 /min BMI (Body Mass Index) 40.1 kg/m2 Ejection Fraction 50-55% 03/21/15 03/11/2015 Height 74 inches 6'2" Weight 313.00 lb w/o shoes Heart Rate 60 /min reg BP Systolic 164 mmHg Lue, lg cuff BP Diastolic 90 mmHg Lue, lg cuff BP Systolic Sitting 168 mmHg Rue, lg cuff BP Diastolic Sitting 90 mmHg Rue, lg cuff BP Systolic Standing 156 mmHg Rue BP Diastolic Standing 84 mmHg Rue Respiratory Rate 16 /min BMI (Body Mass Index) 40.2 kg/m2 Results Test Date Test Result H/L Range Note Basic Metabolic Panel 04/01/2017 Sodium 134 mmol/L 133-145 Potassium 4.3 mmol/L 3.5-5.0 Chloride 98 mmol/L Low 101-111 Co2 Carbon Dioxide 29 mmol/L 22-32 Anion Gap 7 mmol/L 2-11 Glucose 260 mg/dL High 70-100 Blood Urea Nitrogen 28 mg/dL High 6-24 Creatinine 1.45 mg/dL High 0.67-1.17 BUN/Creatinine Ratio 19.3 8-20 Calcium 9.6 mg/dL 8.6-10.3 Egfr Non- 48.3 >60 Egfr 62.1 >60 1 Laboratory test finding 04/01/2017 Magnesium 1.8 mg/dL Low 1.9-2.7 1 Because ethnic data is not always readily available, this report includes an eGFR for both -Americans and non- Americans. The National Kidney Disease Education Program (NKDEP) does not endorse the use of the MDRD equation for patients that are not between the ages of 18 and 70, are , have extremes of body size, muscle mass, or nutritional status, or are non- or non-. According to the National Kidney Foundation, irrespective of diagnosis, the stage of the disease is based on the level of kidney function: Stage Description GFR(mL/min/1.73 m(2)) 1 Kidney damage with normal or decreased GFR 90 2 Kidney damage with mild decrease in GFR 60-89 3 Moderate decrease in GFR 30-59 4 Severe decrease in GFR 15-29 5 Kidney failure <15 (or dialysis) Procedures Date CPT Code Description Status 03/28/2018 41682 EKG Tracing & Interpretation Completed 12/30/2017 97355 Icd eval w/iterative adjment single lead Icd Completed 12/30/2017 75506 Icd eval w/iterative adjment single lead Icd Completed 12/27/2017 51735 Repair Immediate Wound < 2.6CM Completed Face/Ear/Eyelid/Nose/Lip/Muc Mem 12/27/2017 55267 Excise Malig Lesion .6-1CM Face/Ear/Eyelid/Nose/Lip Completed 12/20/2017 39724 Biopsy Skin Lesion Single Completed 09/21/2017 58668 Icd Eval W/Iterative Adjustmnt Single Lead Icd Completed 09/21/2017 82588 Icd Eval W/Iterative Adjustmnt Single Lead Icd Completed 06/20/2017 42982 Biopsy Skin Lesion Single Completed 03/28/2017 78383 EKG Tracing & Interpretation Completed 03/02/2017 19065 ECHO Transthorasic Realtime 2D W Doppler & Color Flow Completed Hosp 03/02/2017 56998 Interrogation Device Eval In Person W/DR Completed Analysis,Single,Dual,Mul 09/21/2016 67289 Icd eval w/iterative adjment single lead Icd Completed 04/27/2016 30986 EKG Tracing & Interpretation Completed 04/09/2016 71792 Icd eval w/iterative adjment single lead Icd Completed 01/08/2016 51203 Polysomnography Sleep Staging 4+ Parameters W/Cpap Completed 11/05/2015 41624 EKG Tracing & Interpretation Completed 09/24/2015 98359 Icd eval w/iterative adjment single lead Icd Completed 04/16/2015 28164 Icd Check Single,Dual Or Multiple In Person W/DR Incl Completed Heart Rhyth 04/11/2015 75480 Stress Test Completed 04/11/2015 10756 Myocardial Perfusion Imaging Tomographic (Spect) Completed Multiple Studies 04/11/2015 32625 Myocardial Perfusion Imaging Tomographic (Spect) Completed Multiple Studies 03/21/2015 86894 ECHO Transthoracic, Real-Time 2D With Doppler And Color Completed Flow 03/11/2015 10291 EKG Tracing & Interpretation Completed Encounters Type Date Location Provider CPT E/M Dx Office Visit 12/20/2017 9:00a [facility] [place] [address] D23.71 R60.0 I83.12 I83.11 L98.9 Office Visit 09/21/2017 2:20p [facility] Maciel, 17615 Z95.810 [facility] DO FACC I48.0 Z86.74 I10 R55 R60.0 E87.6 E83.42 I25.10 G47.33 G93.1 E11.69 E78.5 I25.2 Office Visit 06/20/2017 4:10p [facility] [place] [address] L82.1 D18.01 L92.1 R60.0 D48.5 Office Visit 06/20/2017 2:00p [facility] [address] M47.26 Of Anna Cabrera MD E66.8 M54.5 Office Visit 03/28/2017 1:00p [facility] [place] [address] I48.0 [facility] FACC Z95.810 Z86.74 E87.6 E83.42 I25.10 G47.33 I10 G93.1 E78.5 E11.69 Office Visit 03/03/2017 12:25p [facility], Dania Lynch, N.P. 66184 I25.10 Hospitalists I48.91 Z45.02 I10 Office Visit 03/02/2017 12:24p [facility], 44258 I25.10 Assoc, Hospitalists N.P. I48.91 I10 Z45.02 Office Visit 04/27/2016 8:20a [facility] [place] [address] I48.0 [facility] FACC Z95.810 G47.33 G93.1 I10 I25.10 Z86.74 Office Visit 02/20/2016 7:45a [facility] [place] [address] G47.33 Services Of [facility] E66.01 Office Visit 11/26/2015 9:30a [facility] [place] [address] G47.33 Services Of [facility] E66.01 Office Visit 11/05/2015 3:40p [facility] [place] [address] I48.0 [facility] FACC I46.9 Z95.810 I25.10 I10 G93.1 Office Visit 04/16/2015 3:40p [facility] [address]172 Z95.810 [facility] DO FACC I46.9 I25.10 I10 I48.0 G93.1 V45.02 Office Visit 03/11/2015 1:00p [facility] [place] [address] 428.0 [facility] FACC V45.02 401.9 427.31 348.1 414.01 427.5 794.31 V12.53 Plan of Care Future Appointment(s):04/03/2018 8:15 am - Mirian Messina M.D. at [facility]..06/27/2018 9:00 am - Rashel Benitez MD at [facility] Kxnszrhgycl73/11 /2018 - Tian Maciel DO FACCI48.0 Paroxysmal atrial fibrillationComments: Call in when you get home and go over your medications and dosing with one of our nurses to make sure our lists match up.Follow up:6 puefpmI11.01 Morbid ( severe) obesity due to excess qeaskssjR68.33 Obstructive sleep apnea (adult) ( pediatric)E11.69 Type 2 diabetes mellitus with other specified xgyvgfuakgoiL13.74 Personal history of sudden cardiac ouhrrxS61.1 Anoxic brain damage, not elsewhere mcwypwvcucW10.810 Presence of automatic (implantable) cardiac wewaqqbuiaruzH24.10 [place]cl heart disease [place] coronary artery w/o ang zwkasC43.2 Old myocardial zydhfndtxeN20.5 Hyperlipidemia, zhwqztijbigQ04.0 Localized edema
[2018-04-01] MEDS ORDERED: Albuterol/Ipratropium NEB.SOL* Albuterol 2.5 MG/Ipratropium 0.5 MG 3 ML INH ONE (12:29)
[2018-04-01 12:48] LABS: ABS Basophils 0.1 10^3/ul (0-0.2); ABS Eosinophils 0.1 10^3/ul (0-0.6); ABS Lymphocytes 0.9 10^3/ul (1.0-4.8); ABS Monocytes 0.3 10^3/ul (0-0.8); ABS Neutrophils 4.3 10^3/ul (1.5-7.7); ABS Nucleated RBC 0 10^3/ul; Eosinophil % 2.5 % (0-6); Hematocrit 38 % (42-52); Lymphocyte % 15.8 % (25-47); Mean Corpuscular HGB Conc 35 g/dl (31-36); Mean Corpuscular Hemoglobin 31 pg (27-31); Mean Corpuscular Volume 90 fL (80-94); Mean Platelet Volume 7.9 um3 (7.4-10.4); Nucleated Red Blood Cells % 0.1; Platelet Count 192 10^3/ul (150-450); Red Blood Count 4.18 10^6/ul (4.00-5.40); Red Cell Distribution Width 14 % (10.5-15); White Blood Count 5.7 10^3/ul (3.5-10.8)
--- NOTE | 2018-04-01 12:55 | RAD ---
INDICATION: Shortness of breath. COMPARISON: Comparison is made with a prior chest x-ray study from March 02, 2017. TECHNIQUE: 2 portable films of the chest were obtained. FINDINGS: The heart appears mildly prominent and unchanged from the prior exam. There is a transvenous cardiac pacemaker defibrillator present. The lungs are hyperinflated and grossly clear and appear unchanged from the prior study. IMPRESSION: NO EVIDENCE FOR ACUTE FINDING.
[2018-04-01] MEDS ORDERED: predniSONE TAB* 20 MG PO ONE (13:13)
[2018-04-01 13:14] LABS: EGFR Non-African American 46.6 (>60)
--- NOTE | 2018-04-01 13:14 | ED ---
HPI Cardiac - HPI Summary HPI Summary: Patient is a 72 y/o M w/ c/o afib. He states that he was seen by Dr. Maciel this week and was in afib. Patient woke up this morning with SOB and is still experiencing SOB in the room. He denies chest pain, cough, BLE edema, and cold Sx. Patient is on warfarin, last check is reported to have been 11 days ago. Patient is unsure if his heart is currently racing. PMHx of diabetes, HTN and VA is noted. He states that he has not been diagnosed with CHF, COPD, and emphysema as far as he knows. Patient is on insulin, coreg and amiodarone. Home medications and allergies reviewed. Nothing is noted to aggravate/alleviate Sx. - History of Current Complaint Chief Complaint: EDShortnessOfBreath Stated Complaint: SOB Time Seen by Provider: 04/01/18 12:22 Hx Obtained From: Patient Onset/Duration: Started Hours Ago - SOB onset this morning, Still Present Timing: Constant Current Severity: None - 0/10 pain is denied Pain Intensity: 0 Pain Scale Used: 0-10 Numeric - 0/10 Aggravating Factor(s): Nothing Alleviating Factor(s): Nothing Associated Signs and Symptoms: Positive: Shortness of Breath, Other: - NEGATIVE : cold Sx POSITIVE: afib. Negative: Chest Pain, Swelling, Cough - Additional Pertinent History Primary Care Physician: [id number] - Allergy/Home Medications Allergies/Adverse Reactions: Allergies Allergy/AdvReac Type Severity Reaction Status Date / Time No Known Allergies Allergy Verified 01/25/18 14:11 PMH/Surg Hx/FS Hx/Imm Hx Endocrine/Hematology History: Reports: Hx Diabetes - Insulin and oral medications, Hx Thyroid Disease - Hypothyroid Cardiovascular History: Reports: Hx Cardiomegaly, Hx Congestive Heart Failure, Hx Hypertension, Hx Pacemaker/ICD - pacemaker and defibrillator, Hx Peripheral Vascular Disease - decreased circulation to legs, Other Cardiovascular Problems/ Disorders - Atrial Fibrillation Denies: Hx Coronary Artery Disease Respiratory History: Reports: Hx Sleep Apnea - CPAP Denies: Hx Asthma, Hx Chronic Obstructive Pulmonary Disease (COPD), Other Respiratory Problems/Disorders GI History: Reports: Hx Ulcer - surgery for an ulcer in colon 1980, Other GI Disorders - Opiod induced constipation, takes miralax History: Reports: Other Problems/Disorders - bladder infection 1 year ago , Enlarged prostate - on med Musculoskeletal History: Reports: Hx Arthritis - Left knee, rotator cuff injury left shouldler, Other Musculoskeletal History - Rotator cuff injury left shoulder Denies: Hx Bursitis, Hx Scoliosis, Hx Tendonitis Sensory History: Reports: Hx Cataracts - Bilateral Cataract Extraction 2015, Hx Contacts or Glasses - Glasses Denies: Hx Hearing Aid Opthamlomology History: Reports: Hx Cataracts - Bilateral Cataract Extraction 2016, Hx Contacts or Glasses - Glasses Neurological History: Denies: Other Neuro Impairments/Disorders - Cancer History Cancer Type, Location and Year: BASAL CELL -SKIN Hx Chemotherapy: No - Surgical History Surgery Procedure, Year, and Place: 2010: Pacer/Defib (left chest). 1980 Colon Ulcer. Tonsillectomy 1971 Hx Anesthesia Reactions: No Infectious Disease History: No Infectious Disease History: Denies: Hx Hepatitis, Hx Human Immunodeficiency Virus (HIV), Traveled Outside the [place] in Last 30 Days - Family History Known Family History: Positive: Hypertension - both parents Negative: Cardiac Disease, Diabetes - Social History Alcohol Use: None Alcohol Amount: Quit 2008 Substance Use Type: Reports: None Substance Use Comment - Amount & Last Used: Opiods - morphine and hydrocodone Smoking Status (MU): Former Smoker Review of Systems Positive: Other - NEGATIVE: cold Sx Positive: Other - afib . Negative: Chest Pain Positive: Shortness Of Breath. Negative: Cough Negative: Edema All Other Systems Reviewed And Are Negative: Yes Physical Exam - Summary Physical Exam Summary: Appearance: obese, no pain distress Skin: warm, dry, reflects adequate perfusion Head/face: normal Eyes: EOMI, CHING ENT: normal Neck: supple, non-tender Respiratory: breath sounds present; mild wheezes in lung bases, mostly in left Cardiovascular: irregularly irregular, pulses symmetrical Abdomen: non-tender, soft Bowel Sounds: present Musculoskeletal: strength/ROM intact, trace BLE edema Neuro: normal, sensory motor intact, A&Ox3 Triage Information Reviewed: Yes Vital Signs On Initial Exam: Initial Vitals Temp Pulse Resp BP Pulse Ox 97.3 F 82 18 164/87 94 04/01/18 12:15 04/01/18 12:15 04/01/18 12:15 04/01/18 12:15 04/01/18 12:15 Vital Signs Reviewed: Yes Diagnostics - Vital Signs Vital Signs Temp Pulse Resp BP Pulse Ox 04/01/18 12:43 71 12 97 09/15/18 12:15 97.3 F 82 18 164/87 94 - Laboratory Lab Results: Lab Results 04/01/18 Range/Units 12:39 WBC 5.7 (3.5-10.8) 10^3/ul RBC 4.18 (4.00-5.40) 10^6/ul Hgb 13.0 L (14.0-18.0) g/dl Hct 38 L (42-52) % MCV 90 (80-94) fL MCH 31 (27-31) pg MCHC 35 (31-36) g/dl RDW 14 (10.5-15) % Plt Count 192 (150-450) 10^3/ul MPV 7.9 (7.4-10.4) um3 Neut % (Auto) 74.6 (38-83) % Lymph % (Auto) 15.8 L (25-47) % Crenshaw % (Auto) 5.9 (0-7) % Eos % (Auto) 2.5 (0-6) % Baso % (Auto) 1.2 (0-2) % Absolute Neuts (auto) 4.3 (1.5-7.7) 10^3/ul Absolute Lymphs (auto) 0.9 L (1.0-4.8) 10^3/ul Absolute Monos (auto) 0.3 (0-0.8) 10^3/ul Absolute Eos (auto) 0.1 (0-0.6) 10^3/ul Absolute Basos (auto) 0.1 (0-0.2) 10^3/ul Absolute Nucleated RBC 0 10^3/ul Nucleated RBC % 0.1 Result Diagrams: 04/01/18 12:39 04/01/18 12:39 Lab Statement: Any lab studies that have been ordered have been reviewed, and results considered in the medical decision making process. - Radiology CXR Xray Interpretation: No Acute Changes Radiology Interpretation Completed By: Radiologist - no evidence for acute finding; this report was reviewed by ed physician - EKG 1236 Cardiac Rate: Other Rate - afib rate of 62 bpm EKG Rhythm: Atrial Fibrillation ST Segment: Non-Specific EKG Interpretation: normal axis, incomplete LBBB Re-Evaluation - Re-Evaluation First Eval Re-Evaluation Time: 13:13 Change: Improved Comment: Patient reports relief from Sx after breathing treatment. He will be discharged to home; patient is agreeable with this plan. Disposition - Course Course Of Treatment: Patient with mild wheezing and intermittent shortness of breath. He has rate controlled atrial fibrillation on Coumadin. There is no evidence of pneumonia or CHF. Treated with breathing treatment here and low- dose steroids given his diabetes. We will continue same outpatient. - Differential Dx - Cardiopulmonary Differential Diagnoses - Cardiopulmonary: Other - COPD, CHF, pneumonia - Diagnoses Provider Diagnoses: COPD exacerbation, Afib Discharge - Sign-Out/Discharge Documenting (check all that apply): Patient Departure - discharge - Discharge Plan Condition: Improved Disposition: HOME Prescriptions: Albuterol HFA INHALER* [Ventolin HFA Inhaler*] 2 puff INH Q4H PRN #1 mdi PRN Reason: Shortness Of Breath Azithromycin TAB* [Zithromax TAB (Z-MONICA) 250 mg #6 tabs] 2 tab PO .TODAY, THEN 1 DAILY #1 monica predniSONE [Prednisone 20 MG TAB] 40 mg PO DAILY #6 tablet Patient Education Materials: COPD (Chronic Obstructive Pulmonary Disease) (ED) Referrals: Jorge Cosby DO [Primary Care Provider] - Additional Instructions: Return with fever, chest pain, difficulty breathing, worse, new symptoms or other concerns as discussed. Avoid smoke and smokers. Follow-up with your doctor on Tuesday. - Billing Disposition and Condition Condition: IMPROVED Disposition: Home - Attestation Statements Document Initiated by Roly: Yes Documenting Scribe: Nadir Medrano Provider For Whom Roly is Documenting (Include Credential): Richard Dawkins MD Scribe Attestation: Nadir Hassan, scribed for Richard Dawkins MD on 04/01/18 at 1704. Scribe Documentation Reviewed: Yes Provider Attestation: The documentation as recorded by the Nadir lester accurately reflects the service I personally performed and the decisions made by , Richard Dawkins MD
[2018-04-01 13:37] VITALS: BP 156/96
== END 2018-04-01 13:36 | disposition home or self-care (01) ==
LOC: ED 12:10
DX: J44.1 Chronic obstructive pulmonary disease with (acute) exacerbation (principal); I48.91 Unspecified atrial fibrillation; E11.9 Type 2 diabetes mellitus without complications; I10 Essential (primary) hypertension; I25.2 Old myocardial infarction; Z79.4 Long term (current) use of insulin; Z79.01 Long term (current) use of anticoagulants; Z79.899 Other long term (current) drug therapy; Z87.891 Personal history of nicotine dependence
CPT/HCPCS: 36415; 71045; 80053; 83605; 83880; 84443; 84484; 85025; 93005; 99282; A9270-GY; J7512

== ENCOUNTER 2018-04-05 22:37 | Inpatient (IN) | payer MEDICARE ==
--- OUTSIDE RECORDS SUMMARY | 2018-04-05 22:50 | XMS REPORT ---
:1945 External Reference #:[id number] Author Organization [facility] Address [address] [place] [address] [place] [address] Phone [phone] Care Team Providers Name Role Phone Jorge Cosby DO Primary Care Physician Unavailable Payers Type Date Identification Numbers Payment Provider Subscriber Medicare Primary Policy Number: [id number] Medicare Aidan Shahid PayID: [id number] [address] [place] [address] [facility] Part B Policy Number: [id number] [facility] Aidan Shahid PayID: [id number] [address] [place] [address] Problems Date Description Provider Status Onset: 03/11/2015 Congestive heart failure Tian Maciel DO [facility] Active Onset: 11/26/2015 Obstructive sleep apnea syndrome Faviola Eli MD Active Onset: 11/26/2015 Morbid obesity Faviola Eli MD Active Onset: 06/20/2017 Lumbosacral spondylosis without Shirley Cabrera MD Active myelopathy Onset: 06/20/2017 Obesity Shirley Cabrera MD Active Onset: 04/05/2018 Localized, primary osteoarthritis Mirian Messina M.D. 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 Patient moved back to area to be closer to family. 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 Cigarette [...] 11/24/ Active Tablets 20mg 1 by Unknown 2015 mouth every day Melatonin 11/24/ Active Tablets [...] gtt both Maciel, 03/27/ eyes 4 DO [facility] 2017 times aday Coreg 04/13/ Hx Tablets 25mg 180ta 1 by Tian No 2016 - bs mouth Maciel, 03/18/ twice a DO [facility] 2016 day Novolog Penfill 02/18/ Hx Solution [...] bs mouth Maciel, 11/24/ twice a DO [facility] 2015 day Coreg / Hx Tablets 12.5mg 1 tab by Unknown 0000 - mouth 03/11/ twice a 2014 day Digoxin / Hx Tablets 250mcg 1/2 tab Unknown 0000 - by mouth 11/04/ every 2015 other day Amiodarone HCL / Hx Tablets 200mg 1/2 by Unknown 0000 - mouth 2016 other day Ketorolac / Hx 1 gtt 4 Unknown Tromethamine 0000 - times a 2016 Prednisolone / Hx Suspension 1% 1 gtt 4 Unknown Acetate 0000 - times a 2016 eyes Medications Administered in Office Medication Date Status Form Strength Qnty SIG Indications Ordering Provider Depomedrol Administered Injection Mirian 40MG 018 Katie Messina Depomedrol Administered Injection Mirian 40MG 018 Katie Messina Inj, Administered Injection Umberto La Regadenoson, 015 Patterson, 0.1 MG Katie, FACC, FASNC Inj, Administered Injection Suyapa Aquino, Regadenoson, 015 PA 0.1 MG Technetium TC Administered Injection Umberto La 99M 015 Jenifer Patterson M.D., FACC, Per Unit Dose FASNC Up To 40 Millicuries Technetium TC Administered Injection Tian S. 99M 015 Raheem, DO Tetrofosmin, FACC Per Unit Dose Up To 40 Millicuries Vital Signs Date Vital Result Comment 04/05/2018 Height 72 inches 6'0" Weight 331.00 lb BP Systolic 118 mmHg BP Diastolic 68 mmHg Body Temperature 97.8 F BMI (Body Mass Index) 44.9 kg/m2 04/03/2018 Height 72 inches 6'0" Weight 331.75 lb Heart Rate 84 /min irreg BP Systolic Sitting 176 mmHg BP Diastolic Sitting 102 mmHg Respiratory Rate 20 /min Body Temperature 97.7 F Pain Level 8 BMI (Body Mass Index) 45.0 kg/m2 03/28/2018 Height 74 inches 6'2" Weight 325.00 [...] dialysis) Procedures Date CPT Code Description Status 04/05/2018 Inj/Aspir Major JT Or Bursa W/ US Completed 04/05/2018 Inj/Aspir Major JT Or Bursa W/ US Completed 03/28/2018 75468 EKG Tracing & Interpretation Completed 12/30/2017 57153 Icd eval w/iterative adjment single lead Icd Completed 12/30/2017 01211 Icd eval w/iterative adjment single lead Icd Completed 12/27/2017 91202 Repair Immediate Wound < 2.6CM Completed Face/Ear/Eyelid/Nose/Lip/Muc Mem 12/27/2017 83429 Excise Malig Lesion .6-1CM Face/Ear/Eyelid/Nose/Lip Completed 12/20/2017 11066 Biopsy Skin Lesion Single Completed 09/21/2017 64700 Icd Eval W/Iterative Adjustmnt Single Lead Icd Completed 09/21/2017 11398 Icd Eval W/Iterative Adjustmnt Single Lead Icd Completed 06/20/2017 52845 Biopsy Skin Lesion Single Completed 03/28/2017 01088 EKG Tracing & Interpretation Completed 03/02/2017 56741 Interrogation Device Eval In Person W/DR Completed Analysis,Single,Dual,Mul 03/02/2017 04408 ECHO Transthorasic Realtime 2D W Doppler & Color Flow Completed Hosp 09/21/2016 91954 Icd eval w/iterative adjment single lead Icd Completed 04/27/2016 26441 EKG Tracing & Interpretation Completed 04/09/2016 80013 Icd eval w/iterative adjment single lead Icd Completed 01/08/2016 08617 Polysomnography Sleep Staging 4+ Parameters W/Cpap Completed 11/05/2015 17028 EKG Tracing & Interpretation Completed 09/24/2015 09649 Icd eval w/iterative adjment single lead Icd Completed 04/16/2015 92053 Icd Check Single,Dual Or Multiple In Person W/DR Incl Completed Heart Rhyth 04/11/2015 91646 Stress Test Completed 04/11/2015 23843 Myocardial Perfusion Imaging Tomographic (Spect) Completed Multiple Studies 04/11/2015 94555 Myocardial Perfusion Imaging Tomographic (Spect) Completed Multiple Studies 03/21/2015 17041 ECHO Transthoracic, Real-Time 2D With Doppler And Color Completed Flow 03/11/2015 43743 EKG Tracing & Interpretation Completed Encounters Type Date Location Provider CPT E/M Dx Office Visit 03/28/2018 [facility] [place] [address] I48.0 10:20a [facility] E66.01 G47.33 E11.69 Z86.74 G93.1 Z95.810 I25.10 I25.2 E78.5 R60.0 Office Visit 12/20/2017 9:00a [facility] [place] [address] D23.71 R60.0 I83.12 I83.11 L98.9 Office Visit 09/21/2017 2:20p [facility] Of Tian Maciel, 13775 Z95.810 [facility] I48.0 Z86.74 I10 R55 R60.0 E87.6 E83.42 I25.10 G47.33 G93.1 E11.69 E78.5 I25.2 Office Visit 06/20/2017 4:10p [facility] [place] [address] L82.1 D18.01 L92.1 R60.0 D48.5 Office Visit 06/20/2017 2:00p [facility] [address] M47.26 Of Anna Cabrera MD E66.8 M54.5 Office Visit 03/28/2017 1:00p [facility] [place] [address] I48.0 [facility] Z95.810 Z86.74 E87.6 E83.42 I25.10 G47.33 I10 G93.1 E78.5 E11.69 Office Visit 03/03/2017 12:25p [facility] ,pc Dania Lynch, N.P. [address] I25.10 Hospitalists I48.91 Z45.02 I10 Office Visit 03/02/2017 12:24p [facility] Anthony Sal, 399[address] I25.10 Assoc,pc Hospitalists N.P. I48.91 I10 Z45.02 Office Visit 04/27/2016 8:20a [facility] [place] [address] I48.0 [facility] FACC Z95.810 G47.33 G93.1 I10 I25.10 Z86.74 Office Visit 02/20/2016 7:45a [facility] [place] [address] G47.33 Services Of [facility] E66.01 Office Visit 11/26/2015 9:30a [facility] [place] [address] G47.33 Services [facility] E66.01 Office Visit 11/05/2015 3:40p [facility] [place] [address] I48.0 [facility] FACC I46.9 Z95.810 I25.10 I10 G93.1 Office Visit 04/16/2015 3:40p [facility], [address] Z95.810 [facility] DO FACC I46.9 I25.10 I10 I48.0 G93.1 V45.02 Office Visit 03/11/2015 1:00p [facility] [place] [place] [address] 428.0 [facility] FACC V45.02 401.9 427.31 348.1 414.01 427.5 794.31 V12.53 Plan of Care Future Appointment(s):04/17/2018 1:45 pm - Mirian Messina M.D. at [facility].A.06/27/2018 9:00 am - Rashel Benitez MD at [facility] Snexclyeojl81/19 /2018 - Mirian Messina M.D.M16.11 Unilateral primary osteoarthritis, right hipFollow up:Follow up: 2 rxvmdC34.552 Pain in left hipM16.12 Unilateral primary osteoarthritis, left hipM25.551 Pain in right hip
--- OUTSIDE RECORDS SUMMARY | 2018-04-05 22:50 | XMS REPORT ---
:1945 External Reference #:[id number] Author Organization [employer] Address [address] [place] [address] [place] [address] Phone [phone] Care Team Providers Name Role Phone Jorge Cosby DO Primary Care Physician Unavailable Payers Type Date Identification Numbers Payment Provider Subscriber Medicare Primary Policy Number: [id number] Medicare Aidan Shahid PayID: [id number] [address] [place] [address] [facility] Part B Policy Number: [id number] [facility] Aidan Shahid PayID: [id number] [address] [place] [address] Problems Date Description Provider Status Onset: 03/11/2015 Congestive heart failure Tian Maciel DO [facility] Active Onset: 11/26/2015 Obstructive sleep apnea syndrome [...] Comments Marital Status 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 Patient moved back to area to be closer to family. 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 Cigarette [...] gtt both Maciel, 03/27/ eyes 4 DO [facility] 2017 times aday Coreg 04/13/ Hx Tablets 25mg 180ta 1 by Tian No 2016 - bs mouth Maciel, 03/18/ twice a DO [facility] 2016 day Novolog Penfill 02/18/ Hx Solution [...] bs mouth Maciel, 11/24/ twice a DO [facility] 2015 day Coreg / Hx Tablets 12.5mg 1 tab by Unknown 0000 - mouth 03/11/ twice a 2014 day Digoxin / Hx Tablets 250mcg 1/2 tab Unknown 0000 - by mouth 11/04/ 2015 other day Amiodarone HCL / Hx Tablets 200mg 1/2 by Unknown 0000 - mouth 09/08/ 2016 other day Ketorolac 00/ Hx 1 gtt 4 Unknown Tromethamine 0000 [...] Millicuries Vital Signs Date Vital Result Comment 04/03/2018 Height 72 inches 6'0" Weight 331.75 [...] Procedures Date CPT Code Description Status 03/28/2018 94277 EKG Tracing & Interpretation Completed 12/30/2017 75888 Icd eval w/iterative adjment single lead Icd Completed 12/30/2017 06992 Icd eval w/iterative adjment single lead Icd Completed 12/27/2017 19595 Repair Immediate Wound < 2.6CM Completed Face/Ear/Eyelid/Nose/Lip/Muc Mem 12/27/2017 44155 Excise Malig Lesion .6-1CM Face/Ear/Eyelid/Nose/Lip Completed 12/20/2017 88778 Biopsy Skin Lesion Single Completed 09/21/2017 82509 Icd Eval W/Iterative Adjustmnt Single Lead Icd Completed 09/21/2017 47762 Icd Eval W/Iterative Adjustmnt Single Lead Icd Completed 06/20/2017 03484 Biopsy Skin Lesion Single Completed 03/28/2017 37187 EKG Tracing & Interpretation Completed 03/02/2017 73083 ECHO Transthorasic Realtime 2D W Doppler & Color Flow Completed Hosp 03/02/2017 27318 Interrogation Device Eval In Person W/DR Completed Analysis,Single,Dual,Mul 09/21/2016 26454 Icd eval w/iterative adjment single lead Icd Completed 04/27/2016 44449 EKG Tracing & Interpretation Completed 04/09/2016 76185 Icd eval w/iterative adjment single lead Icd Completed 01/08/2016 49482 Polysomnography Sleep Staging 4+ Parameters W/Cpap Completed 11/05/2015 75634 EKG Tracing & Interpretation Completed 09/24/2015 36572 Icd eval w/iterative adjment single lead Icd Completed 04/16/2015 94803 Icd Check Single,Dual Or Multiple In Person W/DR Incl Completed Heart Rhyth 04/11/2015 56521 Stress Test Completed 04/11/2015 07471 Myocardial Perfusion Imaging Tomographic (Spect) Completed Multiple Studies 04/11/2015 18435 Myocardial Perfusion Imaging Tomographic (Spect) Completed Multiple Studies 03/21/2015 97453 ECHO Transthoracic, Real-Time 2D With Doppler And Color Completed Flow 03/11/2015 28501 EKG Tracing & Interpretation Completed Encounters Type Date Location Provider CPT E/M Dx Office Visit 03/28/2018 [facility] [place] [address] I48.0 10:20a [facility] FACC E66.01 G47.33 E11.69 Z86.74 G93.1 Z95.810 I25.10 I25.2 E78.5 R60.0 Office Visit 12/20/2017 9:00a [facility] [place] [address] D23.71 R60.0 I83.12 I83.11 L98.9 Office Visit 09/21/2017 2:20p [facility] [address] Z95.810 [facility] DO FACC I48.0 Z86.74 I10 R55 R60.0 E87.6 E83.42 I25.10 G47.33 G93.1 E11.69 E78.5 I25.2 Office Visit 06/20/2017 4:10p [facility] [place] [address] L82.1 D18.01 L92.1 R60.0 D48.5 Office Visit 06/20/2017 2:00p [facility] [address] M47.26 Of [facility] MD Deborah E66.8 M54.5 Office Visit 03/28/2017 1:00p [facility] [place] [address] I48.0 [facility] FACC Z95.810 Z86.74 E87.6 E83.42 I25.10 G47.33 I10 G93.1 E78.5 E11.69 Office Visit 03/03/2017 12:25p [facility] Ass, Dania Lynch, N.P. [address] I25.10 Hospitalists I48.91 Z45.02 I10 Office Visit 03/02/2017 12:24p [facility] Anthony Sal, [address] I25.10 Assoc, Hospitalists N.P. I48.91 I10 Z45.02 Office Visit 04/27/2016 8:20a [facility] [place] [address] I48.0 [facility] FACC Z95.810 G47.33 G93.1 I10 I25.10 Z86.74 Office Visit 02/20/2016 7:45a [facility] [place] [address] G47.33 Services Of [facility] E66.01 Office Visit 11/26/2015 9:30a [facility] [place] [address] G47.33 Services [facility] E66.01 Office Visit 11/05/2015 3:40p [facility] [place] [address] I48.0 [facility] FACC I46.9 Z95.810 I25.10 I10 G93.1 Office Visit 04/16/2015 3:40p [facility] Of Tian Maciel, [address] Z95.810 [facility] DO FACC I46.9 I25.10 I10 I48.0 G93.1 V45.02 Office Visit 03/11/2015 1:00p [facility] [place] [address] 428.0 [facility] FACC V45.02 401.9 427.31 348.1 414.01 427.5 794.31 V12.53 Plan of Care Future Appointment(s):06/27/2018 9:00 am - Rashel Benitez MD at [facility] Cswqvggxnlf14/17/2018 - Mirian Messina M.D.M25.551 Pain in right hipM25.552 Pain in left hipM16.11 Unilateral primary osteoarthritis, right hipFollow up:Follow up: 11:45 on 04/05 for B hip inj under [facility]16.12 Unilateral primary osteoarthritis, left hipM54.5 Low back painM47.26 Other spondylosis with radiculopathy, lumbar region
[2018-04-05] MEDS ORDERED: Albuterol/Ipratropium NEB.SOL* Albuterol 2.5 MG/Ipratropium 0.5 MG 3 ML INH ONE (23:11)
[2018-04-05] MEDS ORDERED: NS 0.9% 1000 ML* 1,000 ML IV ONE (23:11)
[2018-04-05] MEDS ORDERED: methylPREDNISolone 125 MG* 2 ML VIAL IV ONE (23:14)
[2018-04-05] MEDS ORDERED: Diltiazem IV* 5 MG/ML 5 ML VIAL (for loading dose/IV Push) (25 MG) IV SLOW PU ONE (23:20)
[2018-04-06 00:10] LABS: ABS Basophils 0 10^3/ul (0-0.2); ABS Eosinophils 0 10^3/ul (0-0.6); ABS Lymphocytes 0.6 10^3/ul (1.0-4.8); ABS Monocytes 0.5 10^3/ul (0-0.8); ABS Neutrophils 8.6 10^3/ul (1.5-7.7); ABS Nucleated RBC 0 10^3/ul; Eosinophil % 0.1 % (0-6); Hematocrit 41 % (42-52); Lymphocyte % 5.7 % (25-47); Mean Corpuscular HGB Conc 34 g/dl (31-36); Mean Corpuscular Hemoglobin 32 pg (27-31); Mean Corpuscular Volume 92 fL (80-94); Mean Platelet Volume 8.5 um3 (7.4-10.4); Nucleated Red Blood Cells % 0.1; Platelet Count 221 10^3/ul (150-450); Red Blood Count 4.44 10^6/ul (4.00-5.40); Red Cell Distribution Width 14 % (10.5-15); White Blood Count 9.7 10^3/ul (3.5-10.8)
[2018-04-06 00:16] LABS: INR 3.04 (0.77-1.02)
[2018-04-06 00:29] LABS: EGFR Non-African American 50.5 (>60)
[2018-04-06] MEDS ORDERED: Furosemide IV* 10 MG/ML 10 ML VIAL (100 MG) IV ONE ×2 (00:53→08:52)
[2018-04-06] MEDS ORDERED: Nitroglycerin 2% OINT* 1 GM PAK TOPICAL ONE (00:53)
[2018-04-06] MEDS ORDERED: Senna TAB PO PRN (00:54)
[2018-04-06] MEDS ORDERED: Ondansetron INJ* 2 MG/ML VIAL IV PRN (00:54)
[2018-04-06] MEDS ORDERED: Al Hydrox/Mg Hydrox/Simet LIQ* 30 ML UDC PO PRN (00:54)
[2018-04-06] MEDS ORDERED: Docusate CAP* 100 MG PO PRN (00:54)
[2018-04-06] MEDS ORDERED: Acetaminophen TAB* 325 MG PO PRN (00:54)
[2018-04-06] MEDS ORDERED: Albuterol HFA INHALER* 8 gm MDI INH PRN (00:58)
[2018-04-06] MEDS ORDERED: Hydrocodone/Acetamin 10/325 1 TAB PO PRN (00:58)
[2018-04-06] MEDS ORDERED: Furosemide IV* 10 MG/ML VIAL (40 MG) ONE (01:00)
[2018-04-06] MEDS ORDERED: Polyethylene Glycol 3350* 17 GM PACKET PO PRN (01:01)
[2018-04-06] MEDS ORDERED: Melatonin 3 MG TAB PO PRN (01:01)
[2018-04-06] MEDS ORDERED: Nitroglycerin 2% OINT* 1 GM PAK ONE (01:01)
[2018-04-06] MEDS ORDERED: Dextrose 50% Syringe 50 ML* 25 GM/50 ML SYRINGE IV PUSH PRN ×3 (01:16→01:17)
[2018-04-06] MEDS ORDERED: Insulin LISPRO* 1 UNITS UNIT SUBCUT ONE (01:16)
--- NOTE | 2018-04-06 01:58 | ED ---
HPI Cardiac - HPI Summary HPI Summary: This patient is a 72 year old M presenting to [facility] accompanied by his with a chief complaint of upper chest pain and described as tightness with breathing. The Pain is reported to be diffuse around the upper chest. Symptoms aggravated by nothing. Symptoms alleviated by nothing. Patient reports chest tightness as well as SOB. He denies fever, and coughing. PMHx includes AFib. COPD, and hypertension. The pt also reports to be taking Coumadin and cortisones. Chest pain is described to be chronic. Pt also reports tachypnea from a rapid respiratory rate baseline. - History of Current Complaint Chief Complaint: EDShortnessOfBreath Stated Complaint: SOB Time Seen by Provider: 04/05/18 22:59 Hx Obtained From: Patient Timing: Constant Initial Severity: Moderate Current Severity: Moderate Pain Intensity: 6 Pain Scale Used: 0-10 Numeric Chest Pain Location: Diffuse - Upper chest Aggravating Factor(s): Nothing Alleviating Factor(s): Nothing Associated Signs and Symptoms: Positive: Other: - Chest tightness and SOB; tachypnea. Negative: Fever, Cough - Additional Pertinent History Primary Care Physician: FERNANDO - Allergy/Home Medications Allergies/Adverse Reactions: Allergies Allergy/AdvReac Type Severity Reaction Status Date / Time No Known Allergies Allergy Verified 04/05/18 23:30 PMH/Surg Hx/FS Hx/Imm Hx Previously Healthy: No Endocrine/Hematology History: Reports: Hx Diabetes - Insulin and oral medications, Hx Thyroid Disease - Hypothyroid Cardiovascular History: Reports: Hx Cardiomegaly, Hx Congestive Heart Failure, Hx Hypertension, Hx Pacemaker/ICD - pacemaker and defibrillator, Hx Peripheral Vascular Disease - decreased circulation to legs, Other Cardiovascular Problems/ Disorders - Atrial Fibrillation Denies: Hx Coronary Artery Disease Respiratory History: Reports: Hx Sleep Apnea - CPAP Denies: Hx Asthma, Hx Chronic Obstructive Pulmonary Disease (COPD), Other Respiratory Problems/Disorders GI History: Reports: Hx Ulcer - surgery for an ulcer in colon 1980, Other GI Disorders - Opiod induced constipation, takes miralax History: Reports: Other Problems/Disorders - bladder infection 1 year ago , Enlarged prostate - on med Musculoskeletal History: Reports: Hx Arthritis - Left knee, rotator cuff injury left shouldler, Other Musculoskeletal History - Rotator cuff injury left shoulder Denies: Hx Bursitis, Hx Scoliosis, Hx Tendonitis Sensory History: Reports: Hx Cataracts - Bilateral Cataract Extraction 2016, Hx Contacts or Glasses - Glasses Denies: Hx Hearing Aid Opthamlomology History: Reports: Hx Cataracts - Bilateral Cataract Extraction 2016, Hx Contacts or Glasses - Glasses Neurological History: Denies: Other Neuro Impairments/Disorders - Cancer History Cancer Type, Location and Year: BASAL CELL -SKIN Hx Chemotherapy: No - Surgical History Surgery Procedure, Year, and Place: 2010: Pacer/Defib (left chest). 1981 Colon Ulcer. Tonsillectomy 1972 Hx Anesthesia Reactions: No Infectious Disease History: No Infectious Disease History: Denies: Hx Hepatitis, Hx Human Immunodeficiency Virus (HIV), Traveled Outside the [place] in Last 30 Days - Family History Known Family History: Positive: Hypertension - both parents Negative: Cardiac Disease, Diabetes - Social History Occupation: Retired Alcohol Use: None Alcohol Amount: Quit 2008 Substance Use Type: Reports: None Substance Use Comment - Amount & Last Used: Opiods - morphine and hydrocodone Smoking Status (MU): Former Smoker Review of Systems Negative: Fever Eyes: Negative ENT: Negative Positive: Chest Pain - upper Respiratory: Other - tachypnea Positive: Shortness Of Breath. Negative: Cough Gastrointestinal: Negative Genitourinary: Negative Musculoskeletal: Negative Skin: Negative Neurological: Negative Psychological: Normal All Other Systems Reviewed And Are Negative: Yes Physical Exam - Summary Physical Exam Summary: Appearance: Well appearing, no pain distress Skin: warm, diaphoretic Head/face: normal Eyes: EOMI, CHING ENT: mucous membranes moist Neck: supple, non-tender Respiratory: CTA, breath sounds present Cardiovascular:Tachycardia, Irregularly irregular Heart beat Abdomen: non-tender, soft Bowel Sounds: present Musculoskeletal: 1 to 2 + LE edema Neuro: normal, sensory motor intact, A&Ox3 Triage Information Reviewed: Yes Vital Signs On Initial Exam: Initial Vitals Temp Pulse Resp BP Pulse Ox 96.6 F 143 24 128/96 94 04/05/18 22:41 04/05/18 22:41 04/05/18 22:41 04/05/18 22:41 04/05/18 22:41 Vital Signs Reviewed: Yes Diagnostics - Vital Signs Vital Signs Temp Pulse Resp BP Pulse Ox 04/06/18 01:00 71 11 99 04/06/18 00:53 79 16 218/95 97 04/06/18 00:51 84 14 207/133 97 04/06/18 00:27 83 99 04/06/18 00:21 89 14 179/118 98 04/06/18 00:17 79 14 98 04/06/18 00:03 80 16 179/92 97 04/06/18 00:00 92 22 97 04/05/18 23:51 115 23 201/125 98 04/05/18 23:33 109 17 195/130 99 04/05/18 23:18 121 21 177/151 96 04/05/18 23:00 123 26 97 04/05/18 22:52 135 23 193/128 95 04/05/18 22:50 125 30 90 04/05/18 22:41 96.6 F 143 24 128/96 94 - Laboratory Lab Results: Lab Results 04/06/18 04/06/18 04/06/18 Range/Units 00:00 00:00 00:00 WBC 9.7 (3.5-10.8) 10^3/ul RBC 4.44 (4.00-5.40) 10^6/ul Hgb 14.0 (14.0-18.0) g/dl Hct 41 L (42-52) % MCV 92 (80-94) fL MCH 32 H (27-31) pg MCHC 34 (31-36) g/dl RDW 14 (10.5-15) % Plt Count 221 (150-450) 10^3/ul MPV 8.5 (7.4-10.4) um3 Neut % (Auto) 88.8 H (38-83) % Lymph % (Auto) 5.7 L (25-47) % [place] % (Auto) 5.1 (0-7) % Eos % (Auto) 0.1 (0-6) % Baso % (Auto) 0.3 (0-2) % Absolute Neuts (auto) 8.6 H (1.5-7.7) 10^3/ul Absolute Lymphs (auto) 0.6 L (1.0-4.8) 10^3/ul Absolute Monos (auto) 0.5 (0-0.8) 10^3/ul Absolute Eos (auto) 0 (0-0.6) 10^3/ul Absolute Basos (auto) 0 (0-0.2) 10^3/ul Absolute Nucleated RBC 0 10^3/ul Nucleated RBC % 0.1 INR (Anticoag Therapy) (0.77-1.02) Sodium 135 (135-145) mmol/L Potassium 4.6 (3.5-5.0) mmol/L Chloride 104 (101-111) mmol/L Carbon Dioxide 25 (22-32) mmol/L Anion Gap 6 (2-11) mmol/L BUN 33 H (6-24) mg/dL Creatinine 1.39 H (0.67-1.17) mg/dL Est GFR ( Amer) 61.1 (>60) Est GFR (Non-Af Amer) 50.5 (>60) BUN/Creatinine Ratio 23.7 H (8-20) Glucose 466 H (70-100) mg/dL Lactic Acid 2.7 H* (0.5-2.0) mmol/L Calcium 9.3 (8.6-10.3) mg/dL Magnesium 2.2 (1.9-2.7) mg/dL Total Bilirubin 0.50 (0.2-1.0) mg/dL AST 92 H (13-39) U/L ALT 127 H (7-52) U/L Alkaline Phosphatase 119 H (34-104) U/L Troponin I 0.01 (<0.04) ng/mL C-Reactive Protein 8.22 H (<8.01) mg/L B-Natriuretic Peptide ( - 100) pg/mL Total Protein 7.5 (6.4-8.9) g/dL Albumin 3.9 (3.2-5.2) g/dL Globulin 3.6 (2-4) g/dL Albumin/Globulin Ratio 1.1 (1-3) 04/06/18 04/06/18 Range/Units 00:00 00:00 WBC (3.5-10.8) 10^3/ul RBC (4.00-5.40) 10^6/ul Hgb (14.0-18.0) g/dl Hct (42-52) % MCV (80-94) fL MCH (27-31) pg MCHC (31-36) g/dl RDW (10.5-15) % Plt Count (150-450) 10^3/ul MPV (7.4-10.4) um3 Neut % (Auto) (38-83) % Lymph % (Auto) (25-47) % [place] % (Auto) (0-7) % Eos % (Auto) (0-6) % Baso % (Auto) (0-2) % Absolute Neuts (auto) (1.5-7.7) 10^3/ul Absolute Lymphs (auto) (1.0-4.8) 10^3/ul Absolute Monos (auto) (0-0.8) 10^3/ul Absolute Eos (auto) (0-0.6) 10^3/ul Absolute Basos (auto) (0-0.2) 10^3/ul Absolute Nucleated RBC 10^3/ul Nucleated RBC % INR (Anticoag Therapy) 3.04 H (0.77-1.02) Sodium (135-145) mmol/L Potassium (3.5-5.0) mmol/L Chloride (101-111) mmol/L Carbon Dioxide (22-32) mmol/L Anion Gap (2-11) mmol/L BUN (6-24) mg/dL Creatinine (0.67-1.17) mg/dL Est GFR ( Amer) (>60) Est GFR (Non-Af Amer) (>60) BUN/Creatinine Ratio (8-20) Glucose (70-100) mg/dL Lactic Acid (0.5-2.0) mmol/L Calcium (8.6-10.3) mg/dL Magnesium (1.9-2.7) mg/dL Total Bilirubin (0.2-1.0) mg/dL AST (13-39) U/L ALT (7-52) U/L Alkaline Phosphatase (34-104) U/L Troponin I (<0.04) ng/mL C-Reactive Protein (<8.01) mg/L B-Natriuretic Peptide 362 H ( - 100) pg/mL Total Protein (6.4-8.9) g/dL Albumin (3.2-5.2) g/dL Globulin (2-4) g/dL Albumin/Globulin Ratio (1-3) Result Diagrams: 04/06/18 00:00 04/06/18 00:00 Lab Statement: Any lab studies that have been ordered have been reviewed, and results considered in the medical decision making process. - Radiology Chest X-ray Radiology Interpretation Completed By: ED Physician - CXR reveals hyperinflation that was not significantly different from previous study as per ED physician. - EKG 2332 EKG Rhythm: Atrial Fibrillation - [address] Segment: Non-Specific EKG Interpretation: Base line artifact, normal axis Re-Evaluation - Re-Evaluation 2348 Change: Improved - Pt improved with vapotherm Disposition - Course Course Of Treatment: Patient presents with decreased breath sounds, wheezing and rapid atrial fibrillation. He has a history of COPD of this known and bilateral lower extremity edema. There may be some degree of CHF. X-ray shows hyperinflation but no acute changes from previous. The patient was placed on high velocity nasal insufflation device with rapid improvement. He was given steroids, breathing treatments. He recently was on oral steroids and improved with that however deteriorated when he finished the bolus. Today, he will require inpatient admission. IV antibiotics were not started given that he just completed a round. Discussed the case with hospitalist who will admit. - Differential Dx - Cardiopulmonary Differential Diagnoses - Cardiopulmonary: CAD, Cardiomyopathy, CHF, Exacerbation Of COPD, Hyperventilation, Hypokalemia, Other - COPD, CHF, pneumonia, cardiomyopathy, rapid A. fib - Diagnoses Provider Diagnoses: COPD (chronic obstructive pulmonary disease), Rapid atrial fibrillation - Critical Care Time Critical Care Time: 30-74 min - CCT is EXCLUSIVE of separately billable procedures. Discharge - Sign-Out/Discharge Documenting (check all that apply): Patient Departure - Admitted to the [facility] - Discharge Plan Condition: Stable Disposition: ADMITTED TO [facility] - Billing Disposition and Condition Condition: STABLE Disposition: Admitted to [facility] - Attestation Statements Document Initiated by Scribe: Yes Documenting Scribe: Fuad Barrera Provider For Whom Scribe is Documenting (Include Credential): Dr. Dawkins Scribe Attestation: oM, Fuad Barrera, scribed for Dr. Dawkins on 04/06/18 at 0533. Scribe Documentation Reviewed: Yes Provider Attestation: The documentation as recorded by the Fuad lester accurately reflects the service I personally performed and the decisions made by me, Dr. Dawkins
[2018-04-06] MEDS: Insulin GLARGINE(*) 1 UNITS UNIT SUBCUT SCH (03:00)
[2018-04-06 06:24] LABS: ABS Basophils 0 10^3/ul (0-0.2); ABS Eosinophils 0 10^3/ul (0-0.6); ABS Lymphocytes 0.5 10^3/ul (1.0-4.8); ABS Monocytes 0.1 10^3/ul (0-0.8); ABS Neutrophils 9.2 10^3/ul (1.5-7.7); ABS Nucleated RBC 0 10^3/ul; Eosinophil % 0 % (0-6); Hematocrit 40 % (42-52); Hemoglobin 13.9 g/dl (14.0-18.0); Lymphocyte % 5.3 % (25-47); Mean Corpuscular HGB Conc 35 g/dl (31-36); Mean Corpuscular Hemoglobin 31 pg (27-31); Mean Corpuscular Volume 90 fL (80-94); Mean Platelet Volume 8.3 um3 (7.4-10.4); Nucleated Red Blood Cells % 0; Platelet Count 199 10^3/ul (150-450); Red Blood Count 4.43 10^6/ul (4.00-5.40); Red Cell Distribution Width 14 % (10.5-15); White Blood Count 9.9 10^3/ul (3.5-10.8)
[2018-04-06 06:32] LABS: INR 3.13 (0.77-1.02)
[2018-04-06] MEDS: Levothyroxine TAB* 50 MCG TAB PO SCH (06:44)
[2018-04-06 06:45] LABS: EGFR Non-African American 55.1 (>60)
[2018-04-06] MEDS ORDERED: Perflutren Lipid Microsphere* 3 ML VIAL ONE (08:14)
--- NOTE | 2018-04-06 08:16 | RAD ---
Indication: Shortness of breath. Single frontal view of the chest performed at 2345 hours was reviewed. Comparison is made with previous exam dated April 01, 2018. Cardiomegaly is noted. AICD device is in place. There is increased density in the lung bases bilaterally consistent with bibasilar atelectasis. No definite pneumonia is noted. IMPRESSION: NO ACTIVE CARDIOPULMONARY DISEASE IS NOTED. LIKELY BIBASILAR ATELECTASIS. R0
--- NOTE | 2018-04-06 08:48 | RAD ---
Indication: Shortness of breath. Duplex Doppler sonography of the deep venous system of both lower extremities was performed. Bilaterally the common femoral veins, proximal greater saphenous veins, proximal deep femoral veins, femoral veins, popliteal veins, posterior tibial veins and peroneal veins appear patent and compressible. IMPRESSION: NO EVIDENCE OF DEEP VENOUS THROMBOSIS OF EITHER LOWER EXTREMITY IS PRESENT.
[2018-04-06] MEDS: Morphine TAB Extended Release (*) 15 MG TAB.ER PO SCH ×3 (08:59→20:16)
[2018-04-06] MEDS ORDERED: Carvedilol TAB* 25 MG PO SCH ×2 (09:00)
[2018-04-06] MEDS: Cholecalciferol TAB* 1000 UNITS PO SCH (09:00)
[2018-04-06] MEDS: Gabapentin CAP(*) 300 MG PO SCH ×2 (09:01→20:16)
[2018-04-06] MEDS: Magnesium Oxide TAB* 400 MG PO SCH ×2 (09:01→20:16)
[2018-04-06] MEDS: Tamsulosin CAP* 0.4 MG PO SCH (09:02)
[2018-04-06] MEDS: Amiodarone TAB* 200 MG PO SCH ×2 (09:02→20:17)
[2018-04-06] MEDS: Furosemide TAB* 20 MG PO SCH (09:02)
[2018-04-06] MEDS: Insulin LISPRO* 1 UNITS UNIT SUBCUT SCH ×6 (09:03→17:33)
[2018-04-06] MEDS ORDERED: Carvedilol TAB* 25 MG PO ONE (09:19)
--- NOTE | 2018-04-06 09:42 | HP ---
CC: Jorge Cosby DO * HISTORY AND PHYSICAL: DATE OF ADMISSION: 04/06/18 TIME OF EVALUATION: 0100. PRIMARY CARE PHYSICIAN: Jorge Cosby DO CHIEF COMPLAINT: Shortness of breath. HISTORY OF PRESENT ILLNESS: This is a 72-year-old male with past medical history of coronary artery disease, atrial fibrillation on anticoagulation, morbid obesity, who presents to the emergency room with acute onset of shortness of breath. The patient states he had a similar episode 3 weeks ago on the airplane coming back from [place] with shortness of breath. It did resolve and then he states he was here on the with similar presentation of shortness of breath. He was given steroids and azithromycin and sent home. He was doing better. This evening, he had Morrow's and then became acutely short of breath again. No chest pain. He was having some right shoulder upper chest pain. No coughing. No congestion. No fever. No nausea, vomiting, or diarrhea. No abdominal pain. He was diaphoretic this evening. He tried the albuterol that he was given and prescribed to him on the that did not help with his shortness of breath. He has ever used inhalers prior to the . He has had intentional weight loss with 20 pounds over the past 6 weeks. He denies any urinary symptoms. Otherwise, review of systems is negative. In the emergency room, the patient had labs and imaging. He was placed on Vapotherm. He was given a DuoNeb, diltiazem bolus, methylprednisolone 125 mg, and a liter of fluid and referred to the hospitalist service for further evaluation. PAST MEDICAL HISTORY: 1. History of OR in 2009 with stent placement back in [place]. 2. Coronary artery disease. 3. Spinal stenosis. 4. Chronic pain. 5. Atrial fibrillation, on anticoagulation. 6. Morbid obesity. 7. Obstructive sleep apnea, on CPAP. 8. History of congestive heart failure. 9. Hypertension. 10. History of pacemaker ICD, followed by Dr. Maciel. 11. Peripheral vascular disease. 12. CKD stage 3. MEDICATIONS: According to the med rec are: 1. Magnesium oxide 400 mg p.o. b.i.d. 2. Lisinopril/hydrochlorothiazide 20/25 daily in the morning. 3. Lisinopril 20 mg in the evening. 4. Synthroid 50 mcg daily. 5. Lispro sliding scale. 6. Levemir 20 units subcu in the morning. 7. [place] 10/325 one tab q.4 hours as needed. 8. Gabapentin 300 mg p.o. b.i.d. 9. Lasix 20 mg daily. 10. Cholecalciferol 5000 units daily. 11. Carvedilol 25 mg p.o. b.i.d. 12. Atorvastatin 40 mg daily. 13. Amiodarone 100 mg p.o. b.i.d. 14. Albuterol inhaler 2 puffs every 4 hours as needed. 15. Norvasc 5 mg p.o. daily. 16. Warfarin 7 mg p.o. daily. 17. Tamsulosin 0.4 mg daily. 18. Potassium chloride 20 mEq p.o. daily. 19. MiraLAX daily in the morning. 20. Nortriptyline 50 mg in the evening. 21. Morphine sulfate ER 50 mg p.o. t.i.d. 22. Melatonin 10 mg daily in the evening. 23. Metformin 1500 mg in the morning, 1000 mg in the evening. ALLERGIES: No known drug allergies. FAMILY HISTORY: Mother is alive at age 97. Father from lung cancer, who was a heavy smoker. SOCIAL HISTORY: The patient lives at home with his . He is independent with the ADLs. His daughter Antonia Gamino is his healthcare proxy. He quit smoking 35 years ago, at that time he smoked 2 packs per day for 24 years. No alcohol use. No illicit drug use. CODE STATUS: Confirmed, he is a DNR/DNI. MOLST form will be completed this evening. REVIEW OF SYSTEMS: A 14-point review of systems as mentioned in the HPI otherwise negative. PHYSICAL EXAMINATION GENERAL: No acute distress. Resting comfortably with his at the bedside. VITAL SIGNS: Temp 96.6, pulse rate 83, respiratory rate 14, oxygen saturation 98% on OxyMask, taken off the Vapotherm since evaluating him. HEENT: Head: Normocephalic. Pupils are equal and reactive. Oropharynx: Mucous membranes are moist. NECK: Supple. No lymphadenopathy. RESPIRATORY: Diminished breath sounds. Poor aeration. Bibasilar rales. No wheezes. No increased work of breathing. CARDIAC: Irregularly irregular rate and rhythm. Systolic murmur most prominent at the left sternal base. ABDOMEN: Morbidly obese. EXTREMITIES: +1 pretibial edema. +1 DPs. NEUROLOGICAL: Alert and oriented x3. No gross focal neurologic deficits. DIAGNOSTIC STUDIES/LAB DATA: White count is 9.7, hemoglobin 14, hematocrit 41 , platelets 221. INR is 3. Sodium 135, potassium 4.6, chloride 104, bicarb 25 , BUN 33, creatinine 1.39, glucose 466. AST is 92, ALT is 127. Troponin 0.01. BNP is 262. Lactic acid 2.7 EKG shows atrial fibrillation with a rate of 111. Chest x-ray shows prominent interstitial markings on wet read. ASSESSMENT: This is a 72-year-old male with past medical history of atrial fibrillation, on anticoagulation, coronary artery disease, congestive heart failure, who presents to the emergency room with acute onset of shortness of breath. 1. Shortness of breath. Assessment: The patient has improved with improved rate control. I suspect this is acute decompensated heart failure and not chronic obstructive pulmonary disease exacerbation. He had Morrow's last evening, which likely tipped him over back into heart failure. This was a third episode over the past 3 weeks and this seems to be by far the worst. The other concern is he was on a long airplane flight 3 weeks ago if he has a pulmonary embolism. He has worsening renal function this evening and his INR is 3. He has a history of smoking and a V/Q scan utility was likely low yield. A D-dimer will be elevated in his clinical context of comorbidities. Plan: We will admit him to Telemetry. We will check an echocardiogram. We will give him a dose of Lasix, place him on a nitro paste, place him back on his evening CPAP, trend the troponins, check an echo, lipid panel, get a Doppler of his lower extremities. If there is concern with his Doppler or echo, we would recommend CTA if his renal function does improve. Consider Cardiology evaluation. 2. Transaminitis. The patient with a bump in his LFTs. I suspect this is hepatic congestion in the setting of heart failure. We will repeat his labs in the morning. 3. Renal failure. It appears the patient does have an underlying chronic kidney disease, which appears to be close to his baseline this evening. 4. Diabetes. The patient with elevated glucose this evening. We will give him lispro tonight. We will place him on his insulin regimen. It is likely with the recent steroid use that he was getting, may also have driven him into the heart failure as well. 6. Chronic medical problems. Will resume his home medication regimen. 7. FEN: Place the patient on a diabetic diet. 8. DVT prophylaxis: The patient scores high risk. He is on Coumadin. 9. Code status: The patient confirmed he is a DNR/DNI. PATIENT TIME: Greater than 60 minutes was spent doing the history and physical and critical care time and more than half the time was spent in direct patient contact. [id number]/CPS #: [id number] MTDD
[2018-04-06] MEDS: Lisinopril TAB* 10 MG PO SCH (09:58)
--- NOTE | 2018-04-06 10:08 | PN ---
Subjective Date of Service: 04/06/18 Interval History: Mr. Shahid reports feeling better this morning than yesterday when he arrived to the hospital. He is having some SOB, but much decreased from yesterday. Still on 5L NC which is not his baseline. He has not been up ambulating yet today. BP has been elevated throughout the night. Family History: Unchanged from Admission Social History: Unchanged from Admission Past Medical History: Unchanged from Admission Objective Active Medications: Acetaminophen (Tylenol Tab*) 650 mg PO Q4H PRN Hydrocodone Bitart/Acetaminophen ([place] 10/325 (Nf)) 1 tab PO Q4HR PRN Al Hydrox/Mg Hydrox/Simethicone (Maalox Plus*) 30 ml PO Q6H PRN Albuterol (Ventolin Hfa Inhaler*) 2 puff INH Q4H PRN Amiodarone HCl (Cordarone Tab*) 100 mg PO BID FABIOLA Amlodipine Besylate (Norvasc Tab*) 5 mg PO QPM FABIOLA Atorvastatin Calcium (Lipitor*) 40 mg PO QPM FABIOLA Carvedilol (Coreg Tab*) 50 mg PO BID FABIOLA Cholecalciferol (Vitamin D Tab*) 5,000 units PO QAM FABIOLA Dextrose (D50w Syringe 50 Ml*) 12.5 gm IV PUSH .FOR FS < 60 - SS PRN Docusate Sodium (Colace Cap*) 100 mg PO BID PRN Furosemide (Lasix Tab*) 20 mg PO QAM FABIOLA Gabapentin (Neurontin Cap(*)) 300 mg PO BID FABIOLA Insulin Glargine (Lantus(*)) 20 units SUBCUT Q24H FABIOLA Insulin Human Lispro (Humalog*) 0 units SUBCUT AC FABIOLA; Protocol Insulin Human Lispro (Humalog*) 0 units SUBCUT AC FABIOLA; Protocol Levothyroxine Sodium (Synthroid Tab*) 50 mcg PO 0600 FABIOLA Lisinopril (Prinivil Tab*) 20 mg PO QPM FABIOLA Lisinopril (Prinivil Tab*) 20 mg PO DAILY FABIOLA Magnesium Oxide (Magox 400 Tab*) 400 mg PO BID FABIOLA Melatonin (Melatonin) 9 mg PO BEDTIME PRN Morphine Sulfate (Ms Contin(*)) 15 mg PO TID FABIOLA Nortriptyline HCl (Pamelor Cap*) 50 mg PO QPM FABIOLA Ondansetron HCl (Zofran Inj*) 4 mg IV Q4H PRN Polyethylene Glycol/Electrolytes (Miralax*) 17 gm PO DAILY PRN Potassium Chloride (Klor Con Er Tab*) 20 meq PO QPM FABIOLA Senna (Senokot Tab*) 1 tab PO BID PRN Tamsulosin HCl (Flomax Cap*) 0.4 mg PO QAM FABIOLA Warfarin Sodium (Coumadin Tab(*)) 4 mg PO 1700 FABIOLA Warfarin Sodium (Coumadin Tab(*)) 3 mg PO 1700 FABIOLA Vital Signs - 8 hr 04/06/18 04/06/18 04/06/18 02:15 03:05 03:15 Temperature 97.0 F 97.6 F Pulse Rate 84 83 Respiratory 20 18 Rate Blood Pressure 186/115 164/104 170/100 (mmHg) O2 Sat by Pulse 98 98 Oximetry 04/06/18 04/06/18 04/06/18 04:30 04:34 08:43 Temperature 97.2 F 97.3 F Pulse Rate 79 81 87 Respiratory 20 20 16 Rate Blood Pressure 187/102 (mmHg) O2 Sat by Pulse 100 100 100 Oximetry 04/06/18 04/06/18 04/06/18 08:59 09:01 09:58 Temperature Pulse Rate Respiratory 18 18 18 Rate Blood Pressure (mmHg) O2 Sat by Pulse Oximetry Oxygen Devices in Use Now: Nasal Cannula Eyes: No Scleral Icterus, PERRLA Ears/Nose/Mouth/Throat: NL Teeth, Lips, Gums, Mucous Membranes Moist Neck: NL Appearance and Movements; NL JVP, Trachea Midline Respiratory: Symmetrical Chest Expansion and Respiratory Effort, Clear to Auscultation Cardiovascular: NL Sounds; No Murmurs; No JVD, - - Irregular rhythm. +1 pitting edema to BLE. Abdominal: NL Sounds; No Tenderness; No Distention, No Hepatosplenomegaly Extremities: No Clubbing, Cyanosis Skin: No Rash or Ulcers Neurological: Alert and Oriented x 3, NL Sensation Lines/Tubes/Other Access: Clean, Dry and Intact Peripheral IV Nutrition: Taking PO's Result Diagrams: 04/06/18 06:13 04/06/18 06:13 Assess/Plan/Problems-Billing Assessment: Mr. Shahid is a 72 y/o male with PMH of CHF, WI, afib, CKD stage 3, SARITA, HTN, and DM2 who presented to the ED on 04/05/18 with c/o worsening SOB and was found to be in an acute CHF exacerbation. - Patient Problems (1) CHF exacerbation Current Visit: Yes Status: Acute Priority: High Code(s): I50.9 - HEART FAILURE, UNSPECIFIED SNOMED Code(s): 28119395 Comment: - Lasix 60mg IV once today - Last echo from 02/2017 showed EF of 55-60% with normal LV systolic function, abnormal LV diastolic function - Repeat echo today (2) Afib Current Visit: No Status: Chronic Priority: High Code(s): I48.91 - UNSPECIFIED ATRIAL FIBRILLATION SNOMED Code(s): 25618934 Comment: - Rate controlled - Continue amiodarone and coumadin (3) Hypertension Current Visit: Yes Status: Chronic Priority: High Code(s): I10 - ESSENTIAL (PRIMARY) HYPERTENSION SNOMED Code(s): 63147868 Comment: - SBP 160-210s - Increase carvedilol to 50mg BID - Continue home doses lisinopril, HCTZ, and amlodipine (4) Diabetes Current Visit: No Status: Chronic Priority: High Code(s): E11.9 - TYPE 2 DIABETES MELLITUS WITHOUT COMPLICATIONS SNOMED Code(s): 90534557 Comment: - Hyperglycemia, 250-400s, likely d/t steroids given in ED so will hold off on endocrine consult at this point - A1C 6.9% - Continue home dose of lantus - Lispro SS and carb coverage - Hold metformin (5) SARITA (obstructive sleep apnea) Current Visit: Yes Status: Acute Priority: High Code(s): G47.33 - OBSTRUCTIVE SLEEP APNEA (ADULT) (PEDIATRIC) SNOMED Code(s): 61480413 Comment: - Continue CPAP at HS (6) Hyperlipidemia Current Visit: No Status: Chronic Priority: Medium Code(s): E78.5 - HYPERLIPIDEMIA, UNSPECIFIED SNOMED Code(s): 26241597 Comment: - Continue atorvastatin (7) Chronic pain Current Visit: No Status: Chronic Priority: Medium Code(s): G89.29 - OTHER CHRONIC PAIN SNOMED Code(s): 00936655 Comment: - Continue gabapentin, morphine, and hydrocodone (8) Hypothyroidism Current Visit: No Status: Chronic Priority: Medium Code(s): E03.9 - HYPOTHYROIDISM, UNSPECIFIED SNOMED Code(s): 10904690 Comment: - Continue levothyroxine (9) Morbid obesity Current Visit: Yes Status: Chronic Priority: Medium Code(s): E66.01 - MORBID (SEVERE) OBESITY DUE TO EXCESS CALORIES SNOMED Code(s): 415360109 Comment: - BMI 42 - Weight counseling (10) DNR (do not resuscitate) Current Visit: Yes Status: Acute (11) DVT prophylaxis Current Visit: Yes Status: Acute Code(s): XLP3930 - SNOMED Code(s): 959165228 Comment: - Coumadin Status and Disposition: Inpatient for diuresis.
[2018-04-06] MEDS: Hydrochlorothiazide TAB* 25 MG PO SCH (15:19)
--- NOTE | 2018-04-06 16:07 | ECHO ---
Patient: MONY ULLOA [facility] Rec#: [id number] : 1945 Date: 04/06/2018 Age: 72y Height: 187.96 cm / 74.0 in Weight: 146.06 kg / 321.9 lbs Sex: M BSA: 2.66 Room#: 446 Admit Date#: 04/06/2018 Type: Inpatient Referring: Cristina Brooks Reading: Jose Vora MD Production Hardener: Lidia Horton RDCS,RDMS Production Hardener: JANES CC: Alea APODACA,Jorge Transthoracic Echocardiogram Indication: CHF BP: 170/100 HR: 67 Rhythm: A-Fib Findings History: AFIB, COPD, HTN, DM, ICD, SARITA Technical Comments: The study quality is fair. The study is technically limited due to the patient's history of COPD. Left Ventricle: The left ventricular chamber size is normal. Moderate to severe concentric left ventricular hypertrophy is observed. The estimated ejection fraction is 50-55%. The assessment of diastolic function is non-diagnostic. Left Atrium: The left atrium is mildly dilated. Right Ventricle: The right ventricle wall thickness is mildly increased. The right ventricular cavity size is normal. The right ventricular global systolic function is mildly reduced. Right Atrium: The right atrium is mildly dilated. Aortic Valve: The aortic valve structure is not well visualized. The aortic valve leaflets are moderately thickened. Systolic excursion of the aortic valve cusps is reduced. There is no evidence of aortic regurgitation. There is moderate to severe aortic stenosis.by continuity. Consider low gradient aortic stenosis. The mean gradient of the aortic valve is 14 mmHg. Mitral Valve: There is mitral annular calcification. The mitral valve leaflets are mildly thickened. There is mild mitral regurgitation. There is no evidence of mitral stenosis. Tricuspid Valve: The tricuspid valve leaflets are normal. There is no evidence of tricuspid valve regurgitation. Unable to estimate the right ventricular systolic pressure. Pulmonic Valve: The pulmonic valve structure is not well visualized. Pericardium: There is no significant pericardial effusion. Aorta: The aorta is not well visualized. There is no dilatation of the aortic arch. Pulmonary Artery: The main pulmonary artery is not well visualized. Venous: The inferior vena cava is dilated. There is a greater than 50% respiratory change in the inferior vena cava dimension. Contrast: Definity was used to optimize study. A total of 3 ml was used Conclusions The study is technically limited due to the patient's history of COPD. Moderate to severe concentric left ventricular hypertrophy is observed. The estimated ejection fraction is 50-55%. The left atrium is mildly dilated. The right ventricle wall thickness is mildly increased. The right ventricular global systolic function is mildly reduced. The right atrium is mildly dilated. The aortic valve structure is not well visualized. There is moderate to severe aortic stenosis.by continuity; Consider low gradient aortic stenosis. There is mitral annular calcification. There is mild mitral regurgitation. Compared to 02/2017, The measurements for the Aortic stenosis have progressed slightly (the report did not mention the at that time). Measurements Name Value Normal Range RVIDd (AP) 2D 2.7 cm (0.9 - 2.6) RAd ISD 4CH 5.5 cm (3.4 - 4.9) RA (A4C)W 4.4 cm (2.9 - 4.6) IVSd (2D) 1.9 cm (0.6 - 1) LVPWd (2D) 1.9 cm (0.6 - 1) LVIDd (2D) 5 cm (3.6 - 5.4) LVIDs (2D) 3.8 cm - LV FS (2D) 24 % (25 - 45) Aortic arch 3 cm (1.8 - 3.4) LAd ISD 4CH 5.9 cm (2.9 - 5.3) LA ISD 4CH W 4.3 cm (2.5 - 4.5) Name Value Normal Range LA ESV SP 4CH (A/L) 56.26 ml - LA ESV SP 2CH (A/L) 81.25 ml - LA ESV BP (A/L) 69.73 ml - LA ESV BP (A/L) index 26 ml/m2 - LA ESV SP 4CH (MOD) 54.78 ml - LA ESV SP 2CH (MOD) 73.26 ml - Name Value Normal Range MV E-wave Vmax 1.1 m/sec - MV deceleration time 207 msec - LV lateral e' Vmax 0.08 m/sec - LV E:e' lateral ratio 13 ratio - Name Value Normal Range AV Vmax 2.5 m/sec - AV VTI 54 cm - AV peak gradient 25 mmHg - AV mean gradient 14 mmHg - LVOT diameter 2.2 cm - LVOT Vmax 0.6 m/sec - LVOT VTI 14 cm - LVOT peak gradient 1.4 mmHg - LVOT mean gradient 0.8 mmHg - TARAH (continuity Vmax) 0.9 cm2 - TARAH (continuity VTI) 1 cm2 - GIACOMO Vmax 0.5 m/sec - Name Value Normal Range MV Vmax 1.2 m/sec - MV VTI 27 cm - MV peak gradient 6 mmHg - MV mean gradient 2.8 mmHg - MV PHT 101 msec - MVA (PHT) 2.2 cm2 - MVA (continuity VTI) 2 cm2 - Name Value Normal Range RAP 8 mmHg - IVC diameter 2.3 cm -
[2018-04-06] MEDS ORDERED: Warfarin TAB(*) 4 MG PO SCH ×2 (17:00→18:00)
[2018-04-06] MEDS ORDERED: Warfarin TAB(*) 3 MG PO SCH (17:00)
[2018-04-06] MEDS ORDERED: Potassium Chlor TAB* 20 MEQ TAB.ER PO SCH (18:00)
[2018-04-06] MEDS ORDERED: amLODIPine TAB* 5 MG PO SCH (18:00)
[2018-04-06] MEDS ORDERED: Atorvastatin* 40 MG TAB PO SCH (18:00)
[2018-04-06] MEDS ORDERED: Nortriptyline CAP* 25 MG PO SCH (18:00)
[2018-04-06] MEDS ORDERED: Lisinopril TAB* 10 MG PO SCH (18:00)
[2018-04-06] MEDS: Carvedilol TAB* 25 MG PO SCH (20:17)
[2018-04-07] MEDS: Insulin GLARGINE(*) 1 UNITS UNIT SUBCUT SCH (02:43)
[2018-04-07] MEDS: Levothyroxine TAB* 50 MCG TAB PO SCH (05:44)
[2018-04-07] MEDS: Morphine TAB Extended Release (*) 15 MG TAB.ER PO SCH (09:44)
[2018-04-07] MEDS: Furosemide TAB* 20 MG PO SCH (09:44)
[2018-04-07] MEDS: Carvedilol TAB* 25 MG PO SCH (09:44)
[2018-04-07] MEDS: Gabapentin CAP(*) 300 MG PO SCH (09:44)
[2018-04-07] MEDS: Cholecalciferol TAB* 1000 UNITS PO SCH (09:44)
[2018-04-07] MEDS: Lisinopril TAB* 10 MG PO SCH (09:44)
[2018-04-07] MEDS: Insulin LISPRO* 1 UNITS UNIT SUBCUT SCH ×4 (09:45→13:00)
[2018-04-07] MEDS: Magnesium Oxide TAB* 400 MG PO SCH (09:45)
[2018-04-07] MEDS: Tamsulosin CAP* 0.4 MG PO SCH (09:45)
[2018-04-07] MEDS: Hydrochlorothiazide TAB* 25 MG PO SCH (09:45)
[2018-04-07] MEDS: Amiodarone TAB* 200 MG PO SCH (09:45)
[2018-04-07 12:35] VITALS: BP 140/79
--- NOTE | 2018-04-07 19:30 | PN ---
Hospitalist Progress Note Date of Service: 04/07/18 . HOSPITALIST DISCHARGE NOTE: See dc instructions and summary by me. Patient stable for dc dc instructions reviewed with the patient at the bedside. DC patient home today.
--- NOTE | 2018-04-10 10:17 | DS ---
DISCHARGE SUMMARY: DATE OF ADMISSION: 04/06/18 DATE OF DISCHARGE: 04/07/18 PRIMARY CARE PROVIDER: Dr. Jorge Cosby. PRINCIPAL DISCHARGE DIAGNOSIS: Acute on chronic diastolic heart failure exacerbation secondary to dietary noncompliance and fluid overload, status post diuresis with resolution of symptomatology. SECONDARY DIAGNOSES: 1. History of coronary disease. 2. Atrial fibrillation, on anticoagulation. 3. Morbid obesity. 4. Spinal stenosis and exercise limitation. 5. Obstructive sleep apnea - on CPAP. 6. Hypertension. 7. History of pacemaker/ICD - followed by Dr. Tian Maciel. 8. Peripheral vascular disease. 9. Chronic kidney disease stage 3. DISCHARGE MEDICATIONS: Increase Lasix to 40 mg by mouth daily for 1 week, then reevaluate dosing with PCP. Followup appointment with Dr. Jorge Cosby next week, at which time, fluid status should be rechecked with reconsideration of ongoing Lasix dose. Continue: 1. Magnesium oxide 400 mg by mouth twice daily. 2. Lisinopril/hydrochlorothiazide 25/25 mg in the morning. 3. Additional lisinopril 20 mg in the evening. 4. Synthroid 50 mcg by mouth daily. 5. Lispro sliding scale as previously. 6. Levemir 20 units subcutaneously in the morning. 7. [place] 10/325 mg 1 tab every 4 hours as needed for pain. 8. Gabapentin 300 mg by mouth twice daily. 9. Cholecalciferol/vitamin D3 5000 units by mouth daily. 10. Carvedilol 25 mg by mouth twice daily. 11. Atorvastatin 40 mg by mouth daily. 12. Amiodarone 100 mg by month twice daily. 13. Albuterol inhaler 2 puffs every 4 hours p.r.n. shortness of breath. 14. Norvasc 5 mg by mouth daily. 15. Warfarin 7 mg by mouth daily. 16. Tamsulosin 0.4 mg by mouth daily. 17. Potassium chloride 20 mEq by mouth daily. 18. MiraLAX daily in the morning p.r.n. constipation. 19. Nortriptyline 50 mg by mouth in the evening. 20. Morphine sulfate extended release 50 mg by mouth 3 times daily (no change). 21. Melatonin 10 mg by mouth daily in the evening (stated dose). 22. Metformin 1500 mg by mouth in the morning, 1000 mg by mouth in the evening. HISTORY OF PRESENT ILLNESS AND HOSPITAL COURSE: Please see the H and P by Dr. Cristina Brooks on 04/06/18. In brief, Mr. Shahid is a 72-year-old gentleman with a history noted above who had an acute onset of shortness of breath while at home. The patient had a similar episode 3 weeks ago in the airplane coming back from [place]. The patient said the shortness of breath was while he was at altitude, he said it resolved upon landing. The patient did have an outpatient treatment for COPD exacerbation with steroids and azithromycin at an urgent care center. Prior to admission, the patient had Morrow's and became acutely short of breath after that. The patient described some vague right shoulder and upper chest pain. The patient denied fever or sputum production or any urinary symptoms. The patient did have some steroids at the point of admission, but he was also treated with IV Lasix and with urination and fluid output he improved notably. The patient is doing better today. He is having a low-salt diet. I spent considerable time doing a basic CHF and dietary education. It seems he is noncompliant with a reasonable diet. The patient is anticoagulated. He has an echocardiogram that shows a preserved ejection fraction, no focal wall abnormalities, and hypertrophy. The patient is utilizing his CPAP. I asked him to consider oxygen prior to his airplane trips and this should be worked out with his primary care physician but it seems that he had shortness of breath at altitude that resolved with descent and that is characteristic of perhaps the intolerance of pressurized altitudes of 5000 to 10 ,000 feet about sea level, characteristic of most commercial flights. The patient's diabetes is relatively well controlled at this point. He is going to resume his outpatient regimen. The patient was counseled on doing daily weights with a digital scale. His daughter and were educated at the bedside with him and they are going to support him. The patient is much improved at this point and is eager for discharge along with his family. With respect to the evaluation for PE, he is anticoagulated with an INR of 3.13. He is on a maximal therapy at this point and there is no evidence on echo of right heart strain and his resolution with diuresis makes it very likely that his problem is pursuant to his dietary indiscretion. I have stopped his steroid and outpatient antibiotic as his steroid will only prompt more fluid retention. I have doubled his Lasix dose, and he should be evaluated next week by his primary care provider. TIME SPENT: Total time take to discharge Mr. Shahid was 45 minutes; greater than half the time was spent at the bedside doing CHF education. His primary diagnosis is CHF with a secondary contribution of COPD only. [id number]/[facility] #: [id number] MTDAna
== END 2018-04-07 14:17 | disposition home or self-care (01) | DRG 291 ==
LOC: ED 22:37 → MEDTELE 04-06 01:02
PROVIDERS: ADMIT Pediatrics; ATTEND Internal Medicine
PROC: 5A09357 Assistance with Respiratory Ventilation, Less than 24 Consecutive Hours, Continuous Positive Airway Pressure (ICD-10-PCS; principal; 2018-04-06)
DX: I13.0 Hypertensive heart and chronic kidney disease with heart failure and stage 1 through stage 4 chronic kidney disease, or unspecified chronic kidney disease (principal); I50.33 Acute on chronic diastolic (congestive) heart failure; I25.10 Atherosclerotic heart disease of native coronary artery without angina pectoris; I48.91 Unspecified atrial fibrillation; E66.01 Morbid (severe) obesity due to excess calories; M48.00 Spinal stenosis, site unspecified; G89.29 Other chronic pain; G47.33 Obstructive sleep apnea (adult) (pediatric); N18.3 Chronic kidney disease, stage 3 (moderate); Z66 Do not resuscitate; J44.9 Chronic obstructive pulmonary disease, unspecified; E11.51 Type 2 diabetes mellitus with diabetic peripheral angiopathy without gangrene; E03.9 Hypothyroidism, unspecified; N40.0 Benign prostatic hyperplasia without lower urinary tract symptoms; E78.5 Hyperlipidemia, unspecified; E11.65 Type 2 diabetes mellitus with hyperglycemia; Z95.810 Presence of automatic (implantable) cardiac defibrillator; I25.2 Old myocardial infarction; Z80.1 Family history of malignant neoplasm of trachea, bronchus and lung; Z87.891 Personal history of nicotine dependence; Z98.42 Cataract extraction status, left eye; Z98.41 Cataract extraction status, right eye; Z85.828 Personal history of other malignant neoplasm of skin; Z91.11 Patient's noncompliance with dietary regimen; Z79.01 Long term (current) use of anticoagulants; Z82.49 Family history of ischemic heart disease and other diseases of the circulatory system; Z95.5 Presence of coronary angioplasty implant and graft
CPT/HCPCS: 36415; 71045; 73523; 80053; 80061; 83036; 83605; 83735; 83880; 84484; 85025; 85610; 86140; 87040; 93005; 93306; 93970; 94660; 99284; A9270-GY; C8929; J1940; J2930

== ENCOUNTER 2018-07-24 11:50 | Observation (INO) | payer MEDICARE ==
[~2018-07-24 11:50] MED LIST changes: -Buffered Lidocaine 0.9% SYRIN* 5 ML/SYR SYRINGE INTRADERM ONE; -Dexamethasone IV* 4 MG/ML 1 ML (4 MG) IV SLOW PU ONE; +Diazepam TAB(*) 5 MG PO PRN; -Famotidine IV* 10 MG/ML 2 ML (20 mg) IV ONE; -Sodium Citrate/Citric Acid* 15 ML UDC PO ONE
[2018-07-24] MEDS ORDERED: ceFAZolin 1 GM/10 ML flush(*) SYRINGE for pocket flush (cardiology) FLUSH ONE (12:00)
[2018-07-24] MEDS ORDERED: ceFAZolin* 2 GM* ONE DOSE (Duplex) IVPB (12:00)
[2018-07-24] MEDS ORDERED: Diazepam TAB(*) 5 MG ONE (13:08)
[2018-07-24] MEDS ORDERED: Midazolam* 1 MG/ML 5 ML VIAL (5 MG) ONE (13:36)
[2018-07-24] MEDS ORDERED: Naloxone* 0.4 MG/ML 1 ML VIAL ONE (13:36)
[2018-07-24] MEDS ORDERED: fentaNYL* 50 MCG/ML 2 ML VIAL (100 MCG VIAL) ONE (13:36)
[2018-07-24] MEDS ORDERED: Flumazenil* 0.1 MG/ML 5 ML MDV ONE (13:37)
[2018-07-24] MEDS ORDERED: Lidocaine 1% INJ* 10 MG/ML 30 ML SDV ONE (13:37)
[2018-07-24] MEDS ORDERED: Iohexol 300* (CONTRAST) 10 ML SDV ONE (13:59)
[2018-07-24] MEDS ORDERED: Acetaminophen TAB* 325 MG PO PRN (14:56)
[2018-07-24] MEDS ORDERED: oxyCODONE/Acetamin 5/325 MG* TAB PO PRN ×2 (14:56→17:25)
[2018-07-24] MEDS: NS 0.9% 1000 ML* 1,000 ML IV SCH (16:03)
[2018-07-24] MEDS: ceFAZolin 1 GM VIAL(*) 1 GM in NS 0.9% 50 ML* 50 ML IVPB SCH ×3 (16:24→20:11)
[2018-07-24] MEDS ORDERED: Dextrose 50% Syringe 50 ML* 25 GM/50 ML SYRINGE IV PUSH PRN (17:27)
[2018-07-24] MEDS ORDERED: Atorvastatin* 40 MG TAB PO SCH (18:00)
[2018-07-24] MEDS ORDERED: Potassium Chlor TAB* 20 MEQ TAB.ER PO SCH (18:00)
[2018-07-24] MEDS ORDERED: Hydrocodone/Acetamin 10/325 1 TAB PO SCH (18:00)
[2018-07-24] MEDS ORDERED: Lisinopril TAB* 10 MG PO SCH ×2 (18:00→21:00)
[2018-07-24] MEDS ORDERED: Nortriptyline CAP* 25 MG PO SCH (18:00)
[2018-07-24] MEDS: Albuterol HFA INHALER* 8 gm MDI INH PRN (20:31)
[2018-07-24] MEDS: Insulin LISPRO* 1 UNITS UNIT SUBCUT SCH (20:41)
[2018-07-24] MEDS: Hydrochlorothiazide TAB* 25 MG PO SCH (20:42)
[2018-07-24] MEDS: Gabapentin CAP(*) 300 MG PO SCH (20:43)
[2018-07-24] MEDS: Hydrocodone/Acetamin 10/325 1 TAB PO PRN (20:43)
[2018-07-24] MEDS: Magnesium Oxide TAB* 400 MG PO SCH (20:44)
[2018-07-24] MEDS: Carvedilol TAB* 25 MG PO SCH (20:44)
[2018-07-24] MEDS ORDERED: Lisinopril/HCTZ 20/12.5(NF) TAB PO SCH (21:00)
[2018-07-24] MEDS: Morphine TAB Extended Release (*) 15 MG TAB.ER PO SCH (21:14)
--- NOTE | 2018-07-25 01:12 | OP ---
CC: Dr. Maciel * DATE OF OPERATION: 07/24/18 - ROOM #446 DATE OF : 49 SURGEON: Jonathan Ye MD ANESTHESIA: Local anesthesia with conscious sedation. PRE-OP DIAGNOSES: 1. Ischemic cardiomyopathy. 2. ICD at elective replacement indicator. 3. Atrial fibrillation. POST-OP DIAGNOSES: 1. Ischemic cardiomyopathy. 2. ICD at elective replacement indicator. 3. Atrial fibrillation. OPERATIVE PROCEDURE: Single-chamber ICD generator change, implant of an atrial lead. ESTIMATED BLOOD LOSS: Nil. COMPLICATIONS: None. INDICATIONS: The patient is a 73-year-old gentleman with a history of ischemic cardiomyopathy, history of ICD implantation in 2009. The patient has been followed by Dr. Maciel. The patient's ICD reached elective replacement indicator. The patient had a new diagnosis of atrial fibrillation and atrial lead was requested for management of his atrial arrhythmias. DESCRIPTION OF PROCEDURE: The patient was brought to the procedure room in a fasting state. Informed consent had been obtained prior to the procedure. All labs were reviewed. The patient had been off his anticoagulation for three days. The patient was placed supine on the procedure table. His left deltopectoral area was cleaned and draped in the usual fashion. 1% lidocaine was used for local anesthesia. A venogram of the left shoulder demonstrated patency of the cephalic, axillary, and innominate vein down to the right atrium. A 4.5 cm incision was made across the previous incision line. Blunt dissection was carried down to the fiber sheath. The fiber sheath was opened and the ICD was removed from the pocket. The explanted ICD is a [employer], model 1207, serial number [id number]. The generator was removed from the table. Using both ultrasound guidance and the previous venogram, the axillary vein was entered by a Seldinger technique and a guidewire was placed. Over the guidewire, a 6-Malay sheath introducer was placed, through which a right atrial lead was advanced to the high right atrium. The right atrial lead was a [employer], model 2088TC, serial number [id number], had a P- wave sensitivity of 1.4, impedance 450 ohms. Threshold cannot be tested as the patient was in atrial fibrillation. The atrial lead was sutured to the pectoral fascia. The pocket was flushed with antibiotic-infused normal saline. A new pacer generator ICD was attached appropriately to the atrial and right ventricular ICD lead. The right ventricular ICD lead is a [employer], model 7120, serial number [id number]. The new generator is a [employer], model BH0346, serial number [id number]. The device was placed in the pocket. The surgical incision was closed in three layers. The patient tolerated the procedure well with no complications. [id number]/[facility] #: [id number] [facility] H[facility]PITALAna
[2018-07-25] MEDS: Hydrocodone/Acetamin 10/325 1 TAB PO PRN ×2 (02:44→11:49)
[2018-07-25] MEDS: NS 0.9% 1000 ML* 1,000 ML IV SCH (02:46)
[2018-07-25] MEDS: ceFAZolin 1 GM VIAL(*) 1 GM in NS 0.9% 50 ML* 50 ML IVPB SCH ×2 (05:38→13:10)
[2018-07-25] MEDS: Morphine TAB Extended Release (*) 15 MG TAB.ER PO SCH (05:39)
[2018-07-25] MEDS ORDERED: Levothyroxine TAB* 50 MCG TAB PO SCH (06:00)
[2018-07-25] MEDS: Albuterol HFA INHALER* 8 gm MDI INH PRN (06:12)
[2018-07-25] MEDS: Hydrochlorothiazide TAB* 25 MG PO SCH (08:44)
[2018-07-25] MEDS: Magnesium Oxide TAB* 400 MG PO SCH (08:44)
[2018-07-25] MEDS: Gabapentin CAP(*) 300 MG PO SCH (08:45)
[2018-07-25] MEDS: Insulin LISPRO* 1 UNITS UNIT SUBCUT SCH ×2 (08:45→12:13)
[2018-07-25] MEDS: Carvedilol TAB* 25 MG PO SCH (08:45)
[2018-07-25] MEDS ORDERED: Furosemide TAB* 20 MG PO SCH (09:00)
[2018-07-25] MEDS ORDERED: Cholecalciferol TAB* 1000 UNITS PO SCH (09:00)
[2018-07-25] MEDS ORDERED: Tamsulosin CAP* 0.4 MG PO SCH (09:00)
[2018-07-25] MEDS ORDERED: Amiodarone TAB* 200 MG PO SCH (09:00)
[2018-07-25 13:11] VITALS: BP 158/78
--- NOTE | 2018-07-25 15:09 | DS ---
DISCHARGE SUMMARY: DATE OF ADMISSION: 07/24/18 DATE OF DISCHARGE: Tentative date of discharge pending no complications, 07/25/18 DICTATING FOR: Jonathan Ye MD PRIMARY CIGAR HEAD PEGGER: Dr. Tian Maciel PRIMARY CARE PHYSICIAN: Dr. Jorge Cosby ADMITTING DIAGNOSES: 1. Single chamber implantable cardioverter defibrillator generator change with upgrade to dual chamb er implantable cardioverter defibrillator. 2. History of ventricular tachycardia. 3. History of atrial fibrillation, on Xarelto therapy. 4. History of obstructive sleep apnea, compliant with CPAP therapy. 5. History of coronary artery disease, on beta-cesar, statin therapy. 6. History of chronic kidney disease, outpatient creatinine was 1.1 on 07/12/18. DISCHARGE DIAGNOSES: 1. History of cardiac arrest with ventricular tachycardia with implantable cardioverter defibrillato r in situ, device elective replacement indicator status post single chamber implantable cardioverter defibrillators generator change with upgrade to dual chamber implantable cardioverter defibrillators by Dr. Jonathan Ye on 07/24/18. 2. History of coronary artery disease, on beta blockade and statin therapy, defer aspirin therapy to primary billing assistant, Dr. Tian Maciel. 3. History of chronic kidney disease, creatinine stable, May 2018. 4. History of obstructive sleep apnea, compliant with CPAP therapy. 5. History of atrial fibrillation on Xarelto therapy to be resumed, 07/25/18 at 2100 at previously d irected. PROCEDURES PERFORMED: On 07/24/18, the patient had ICD single chamber generator changed with implant of atrial lead by Dr. Jonathan Ye. The patient new generator is [employer] modal [id number], se rial number [id number]. Surgical incision was closed with alejandro. For further information please revi ew Dr. Jonathan Ye's procedural note. COMPLICATIONS: None thus far. COURSE OF HOSPITAL STAY: This is a pleasant 73-year-old gentleman, who follows with Dr. Marsha Maciel of our practice, who had single chamber ICD in situ due to history of cardiac arrest with VT that was placed in 2009. Device is ALPA. Subsequently, he was evaluated in our office on 07/05/18 for single chamber ICD gen change with possible upgrade to dual chamber ICD. The patient was evaluat ed by Dr. Ye and was agreeable to ICD gen change with upgrade. Subsequently, the patient presente d to [facility] on 07/25/18 for ICD gen change with upgrade. Prior to having procedure done, blood work was reviewed from May, at that point in time, INR was 1.6, white blood cell count 9.6, hemoglobin 1 2.8, hematocrit 37, platelets 342. Sodium 140, potassium 4.3, chloride 105, carbon dioxide 28, creati nine 1.1. He underwent the above mentioned procedure. Postprocedure was transferred [facility], where he was monitored overnight. He reports no complaints. Vital signs had been stable. Last set was at 7:46 this morning. Temperature 98.5, pulse 108, respirations 14, oxygenation 96%, blood pressure 14 9/83. Device was interrogated this morning and reviewed by Dr. Jonathan Ye. Tentative discharge i s later today pending no complications. The patient did have chest x-ray obtained this morning to ru le out pneumothorax. He is in stable condition and offers no complaints. Denies chest pain, fever, c hills, shortness of breath, dizziness, lightheadedness, left anterior chest pain or discomfort and he has been compliant with left arm sling. The patient is to be discharged home in stable condition. He is to follow up with PCP, Dr. Alea rawls 7 to 10 days. He is to follow up with Dr. Jonathan Ye on 08/02/18 at 10:30 in the morning. I ca lled our office and notified him that he will need a device followup appointments. Thus, he is to fo llow up with the pacemaker clinic on 08/15/18 at 10:30 in the morning. The patient was instructed not to return to work or to drive until further directed and followup on 08/02/[address] Jonathan eY. He is to wear left arm sling as directed. He is instructed to not l ift more than 10 pounds for 2 weeks, do not lift more than 15 pounds for 8 weeks, do not lift left ar m above shoulder for 2 weeks, do not lift left arm above head for 8 weeks. He is to keep incision cl wilfredo and dry for 2 weeks. He is to not remove dressing for 48 hours and he is to not saturate incisio n site for 48 hours. He verbalized an understanding. I educated the patient on signs and symptoms o f infection such as inflammation, discharge, fever, swelling over incision site, oozing discharge. H e is aware to contact our practice if symptoms were to recur. Incision site was inspected this gustavo hyatt and dressing was changed. There is no evidence of pocket hematoma. Edges are well approximated w ith alejandro in situ. Scant blood noted on dressing. Dressing was removed and placed a new 4 x 4 carlos a ssing with adhesive tape. Left anterior chest is nontender to palpation. DISCHARGE MEDICATIONS: Include: 1. Xarelto 20 mg p.o. daily with dinner. 2. Metformin 1000 mg p.o. q.h.s. 3. Flomax 0.4 mg p.o. daily. 4. K-Dur 20 mEq p.o. daily. 5. Senokot as directed. 6. Nortriptyline 100 p.o. q.h.s. 7. Magnesium oxide 400 mg p.o. daily. 8. Lisinopril/hydrochlorothiazide 20/12.5 mg p.o. b.i.d. Home medications: Please refer to discharge home med rec. Please note that new prescription for Kef lv was faxed in to pharmacy. FOLLOWUP BLOOD WORK: None. DISPOSITION: Pending no complications, the patient to be discharged home later today. DISCHARGE FOLLOWUP: Followup appointment as previously directed with Dr. Jonathan Ye 08/02/18 at 1 0:30 in the morning. Pacemaker clinic, 08/15/18 at 10:30 in the morning. Followup with PCP, Dr. Beverley pfeiffer in [address] Jonathan Ye has seen and examined the patient and agreed to the above assessment and plan. LIAN THOMPSON NP [id number]/[facility] #: [id number]
== END 2018-07-25 13:49 | disposition home or self-care (01) ==
LOC: CHICATH 11:50 → MEDTELE 15:19
PROVIDERS: ADMIT Specialist; ATTEND Specialist
DX: I25.5 Ischemic cardiomyopathy (principal); I48.0 Paroxysmal atrial fibrillation; I25.10 Atherosclerotic heart disease of native coronary artery without angina pectoris; Z95.810 Presence of automatic (implantable) cardiac defibrillator; J44.9 Chronic obstructive pulmonary disease, unspecified; N18.3 Chronic kidney disease, stage 3 (moderate); I48.91 Unspecified atrial fibrillation; I50.33 Acute on chronic diastolic (congestive) heart failure; E11.9 Type 2 diabetes mellitus without complications; R06.00 Dyspnea, unspecified; E66.01 Morbid (severe) obesity due to excess calories; I25.2 Old myocardial infarction
CPT/HCPCS: 33216; 33263; 71045; 71046; 88300; 96361; 96372; 96374; 96375; 99156; 99157; A9270-GY; C1722; C1898; G0378; J0690; J2250; J2310; J3010

== ENCOUNTER → 2018-09-18 09:33 | Day surgery (SDC) | payer MEDICARE ==
[~2018-09-18 09:33] MED LIST changes: -Diazepam TAB(*) 5 MG PO PRN; +Heparin 2 UNITS/ML IVPREMIX* 2,000 UNIT/1,000 ML BAG IV ONE; +Heparin(*) 1000 UNIT/ML 10 ML VIAL CATH LAB IV ONE; +Iodixanol 320 (CONTRAST) 100 ML SDV ONE; +Lidocaine 1% INJ* 10 MG/ML 30 ML SDV ONE; +Midazolam* 1 MG/ML 5 ML VIAL (5 MG) ONE; +NS 0.9% 1000 ML** 1,000 ML IV SCH; +VERAPAMIL 2.5 MG/ML 2 ML VIAL ** 5 mg/2 ml ONE; +fentaNYL* 50 MCG/ML 2 ML VIAL (100 MCG VIAL) ONE; +nitroGLYCERIN DRIP* 25,000 MCG/250 ML BTL ONE
[2018-09-18 11:16] LABS: BUN/Creatinine Ratio 32.4 (8-20); Calcium 9.5 mg/dL (8.6-10.3); EGFR Non-African American 50.4 (>60); Potassium 4.3 mmol/L (3.5-5.0)
[2018-09-18 15:35] VITALS: BP 131/67
--- NOTE | 2018-09-19 00:06 | CATH ---
CC: Dr. Tian Maciel; Dr. Cosby in [place] * CARDIAC CATHETERIZATION REPORT: DATE OF SERVICE: 09/18/18 INDICATION FOR CONSULTATION: Aortic stenosis, congestive heart failure. The patient is a 73-year-old gentleman with a history of cardiomyopathy, ventricular tachycardia, ICD, who has had a couple of episodes of congestive heart failure. An echocardiogram showed reduced LV systolic function with at least moderate aortic stenosis with some question of symptomatic low-gradient aortic stenosis. Cardiac catheterization was recommended to further evaluate his aortic stenosis and potential for coronary artery disease. PROCEDURE: The patient was brought to the cardiac catheterization lab in a fasting state. Informed consent had been obtained prior to the procedure. All labs had been reviewed. The patient was placed supine on the procedure table. His right radial and right axillary area were prepped and draped in the usual fashion. 1% lidocaine was used for local anesthesia. The patient had an IV in his antecubital vein. This was switched out for a 5-Vietnamese sheath through which a 5-Vietnamese triple lumen right heart catheter was placed. The patient underwent right heart catheterization including multiple pressure tracings and oxygenation samples. The right heart catheter was removed. The right radial area was prepped and draped in the usual fashion. 1% lidocaine was used for local anesthesia. The radial artery was entered by a Seldinger technique and a guidewire was placed. Over the guidewire, a 6-Vietnamese hydrophilic sheath was placed. Infused through the sheath was a cocktail of heparin, verapamil and nitroglycerin. The patient underwent coronary angiography and left heart catheterization using a TIG catheter and a 5- Vietnamese pigtail catheter. A left ventriculogram was not done because of the patient's diabetes and mild renal insufficiency. At the end of the procedure, all sheaths and catheters were removed. Patient tolerated the procedure well and no complications. A total of 5.3 minutes of fluoro time was used. A total of 85 cc of Visipaque dye was used. FINDINGS: HEMODYNAMICS: Right atrial pressure with a mean of 15, right ventricular pressure 60/9 with an end-diastolic pressure of 18, pulmonary artery pressure of 56/21 with a mean of 36, pulmonary capillary wedge pressure of 26, central aortic blood pressure 180/74 with a mean of 115, left ventricular pressure 190/ 10 with an end diastolic pressure of 20. Calculated valve area by Dima was 2.2 cm squared, index to body size 0.8 cm squared. The mean gradient was 20 mmHg. CORONARY ARTERIES: 1. Left main artery: The left main was a very short and quickly bifurcated into the LAD and circumflex. There was no evidence of stenosis. 2. Left anterior descending artery: The LAD was normal in size. They gave up 2 diagonal vessels. The LAD itself was without disease. The second diagonal vessel had a proximal 50% stenosis. 3. Left circumflex artery: The circumflex artery was normal in size. They gave off 1 obtuse marginal branch. There was no evidence of stenosis. Right coronary artery: The RCA was a large dominant vessel giving off the PDA and a posterolateral branch. The right coronary artery itself had mild diffuse disease. There was no stenosis greater than 30%. There was an RV marginal branch that had a mid 60% to 70% stenosis. The remainder of the vessel is without disease. IMPRESSION: 1. Moderate aortic stenosis with a mean gradient of 20 mmHg. The valve area is calculated at 2.2 cm squared, but index to body surface area of 0.8 cm squared. 2. No critical coronary artery disease 3. A 50% stenosis of the diagonal vessel of the LAD. 4. A 60 to 70% stenosis of the RV marginal branch of the right coronary artery. 5. Left ventriculogram was not done. RECOMMENDATION: The patient will continue on maximum medical therapy. The patient will get a blood work in 3 days to follow up on potassium, BUN and creatinine after his cardiac catheterization. [id number]/[facility] #: [id number] MTDD
== END | disposition home or self-care (01) ==
LOC: CHICATH 09:33
PROVIDERS: ATTEND Specialist
DX: I50.22 Chronic systolic (congestive) heart failure (principal); I35.0 Nonrheumatic aortic (valve) stenosis; I25.119 Atherosclerotic heart disease of native coronary artery with unspecified angina pectoris; I25.2 Old myocardial infarction; I48.0 Paroxysmal atrial fibrillation; J44.9 Chronic obstructive pulmonary disease, unspecified; Z79.01 Long term (current) use of anticoagulants; E11.69 Type 2 diabetes mellitus with other specified complication; Z79.84 Long term (current) use of oral hypoglycemic drugs; N18.3 Chronic kidney disease, stage 3 (moderate); G47.33 Obstructive sleep apnea (adult) (pediatric); Z87.891 Personal history of nicotine dependence; Z95.810 Presence of automatic (implantable) cardiac defibrillator; E66.09 Other obesity due to excess calories
CPT/HCPCS: 36415; 80048; 82803; 93460; 99156; 99157; C1887; J1644; J2250; J3010